=== PATIENT | female | born 1995 | race Two or more races ===

== ENCOUNTER 2021-11-02 07:27 | Emergency (ER) | payer MEDICAID, OTHER ==
[~2021-11-02] VITALS: Ht 160 cm; Wt 93.0 kg
[2021-11-02 09:05] VITALS: BP 109/73
[2021-11-02] MEDS ORDERED: KETOROLAC TROMETH 60MG/2ML VIAL IM ONE (09:30)
[2021-11-02] MEDS ORDERED: IBU600T PO (09:56)
== END 2021-11-02 10:00 | disposition home or self-care (01) ==
LOC: ER 07:27
DX: G43.909 Migraine, unspecified, not intractable, without status migrainosus (principal)
CPT/HCPCS: 96372; 99283; J1885

== ENCOUNTER 2024-03-24 03:01 | Emergency (ER) | payer MEDICAID ==
[~2024-03-24] VITALS: Ht 160 cm; Wt 100.4 kg
[~2024-03-24 03:01] MED LIST: IBU600T PO
[2024-03-24 07:21] LABS: Alanine Aminotransferase 11 U/L (7-40); Albumin 4.1 g/dL (3.2-4.8); Alkaline Phosphatase 54 U/L (46-116); Anion Gap 4 (5-15); Aspartate Aminotransferase 11 U/L (13-40); Calcium 9.3 mg/dL (8.5-10.1); Carbon Dioxide 25 mmol/L (20-30); Chloride 108 mmol/L (98-107); Glucose 92 mg/dL (74-106); Potassium 3.8 mmol/L (3.5-5.1); Sodium 137 mmol/L (136-145)
[2024-03-24 07:22] LABS: Bilirubin, Total 0.3 mg/dL (0.2-1.0); Total Protein 6.9 g/dL (5.7-8.2)
[2024-03-24 07:23] LABS: Basophils # (auto) 0.1 10 ^3/uL (0-0.2); Basophils % (auto) 0.4 % (0.0-2.0); Eosinophils # (auto) 0.1 10 ^3/uL (0-0.8); Eosinophils % (auto) 0.5 % (0.0-7.0); Hematocrit 35.7 % (36.0-46.0); Hemoglobin 11.9 g/dL (12.2-16.2); Lymphocytes # (auto) 2.5 10 ^3/uL (0.4-5.4); Lymphocytes % (auto) 18.5 % (10.0-50.0); Mean Corpuscular Hemoglobin 27.2 pg (28.0-32.0); Mean Corpuscular Hgb Conc. 33.2 g/dL (32.0-36.0); Mean Corpuscular Volume 81.8 fL (80.0-100.0); Monocytes # (auto) 1.1 10 ^3/uL (0-1.3); Monocytes % (auto) 8.2 % (0.0-12.0); Neutrophils # (auto) 9.9 10 ^3/uL (1.6-8.6); Neutrophils % (auto) 72.4 % (37.0-80.0); Nucleated Red Blood Cells % 0.1 %; Red Blood Cells 4.37 10^6/uL (4.0-5.20); Red Cell Distribution Width 15.7 % (11.8-14.3); White Blood Cell 13.7 10^3/uL (4.4-10.8)
[2024-03-24 07:30] LABS: BUN/Creatinine Ratio 10.4 (10.0-20.0); Blood Urea Nitrogen < 5 mg/dL (9-23)
[2024-03-24] MEDS ORDERED: CEPH250C PO (08:50)
[2024-03-24] MEDS: CEPHALEXIN 250 MG CAP PO ONE (09:28)
[2024-03-24 11:35] LABS: Urine Bacteria None Seen /hpf (None Seen)
[2024-03-24 11:50] LABS: Urine Blood Negative /uL (Negative); Urine Clarity Turbid (Clear); Urine Color Yellow (Yellow); Urine Mucus MODERATE (None Seen); Urine Protein, UAD 1+ (Negative); Urine Specific Gravity 1.033 (1.001-1.035); Urine Urobilinogen Normal (Negative); Urine WBC 8 /hpf (0 - 5)
[2024-03-24 13:39] VITALS: BP 100/73; PULSE 87; RESP 18; O2SAT 100
== END 2024-03-24 13:40 | disposition home or self-care (01) ==
LOC: ER 03:01
DX: O23.42 Unspecified infection of urinary tract in pregnancy, second trimester (principal); R10.2 Pelvic and perineal pain; S00.83XA Contusion of other part of head, initial encounter; N39.0 Urinary tract infection, site not specified; Z3A.17 17 weeks gestation of pregnancy; Y04.2XXA Assault by strike against or bumped into by another person, initial encounter; Y93.89 Activity, other specified; Y92.89 Other specified places as the place of occurrence of the external cause; Y99.8 Other external cause status
CPT/HCPCS: 36415; 76805; 80053; 81001; 84702; 85025

== ENCOUNTER 2024-06-11 09:18 | Observation (INO) | payer MEDICAID ==
[~2024-06-11] VITALS: Ht 160 cm; Wt 96.2 kg
[~2024-06-11 09:18] MED LIST changes: +CEPH250C PO
[2024-06-11 09:34] VITALS: BP 103/67; PULSE 91; RESP 18; O2SAT 96
[2024-06-11] MEDS: LACTATED RINGER'S 1,000 ML IV ONE (12:44)
[2024-06-11] MEDS: BETAMETHASONE ACET (30mg/5ml) 5ml Vial 6mg/ml IM ONE (12:44)
[2024-06-11] MEDS: TERBUTALINE SULFATE 1 MG/ML 1ML VIAL SC SCH (12:44)
[2024-06-11] MEDS ORDERED: PRENCAP11 PO (13:39)
[2024-06-11] MEDS ORDERED: NIFE10CA52 PO ×2 (13:39→13:40)
[2024-06-11 13:40] LABS: Vaginal Bacteria Few; Vaginal Clue Cells None Seen; Vaginal Epithelial Cells Few; Vaginal Trichomonas Not Present
[2024-06-11] MEDS: NIFEdipine 10 MG CAP PO ONE (14:11)
[2024-06-11 15:23] LABS: Urine Bacteria FEW /hpf (None Seen); Urine Blood Negative /uL (Negative); Urine Clarity Turbid (Clear); Urine Color Light-Orange (Yellow); Urine Mucus FEW (None Seen); Urine Protein, UAD 1+ (Negative); Urine Specific Gravity 1.024 (1.001-1.035); Urine Urobilinogen Normal (Negative); Urine WBC 9 /hpf (0 - 5)
== END 2024-06-11 15:19 | disposition home or self-care (01) ==
LOC: ER 09:18 → UNDOADMOB 09:42 → LDRP 09:42 → ER 09:42 → LDRP 09:56 → UNDODISOB 15:19
PROVIDERS: ADMIT Obstetrics & Gynecology; ATTEND Obstetrics & Gynecology
DX: O62.9 Abnormality of forces of labor, unspecified (principal); O26.893 Other specified pregnancy related conditions, third trimester; R10.9 Unspecified abdominal pain; Z3A.29 29 weeks gestation of pregnancy
CPT/HCPCS: 59025; 76815; 81001; 81002; 87210; 94760; 96360; 96361; 96372; 99284; G0378; J0702; J3105

== ENCOUNTER 2024-06-12 16:05 | Observation (INO) | payer MEDICAID ==
[~2024-06-12] VITALS: Ht 160 cm; Wt 102.1 kg
[~2024-06-12 16:05] MED LIST changes: -CEPH250C PO; -IBU600T PO; +NIFE10CA52 PO; +PRENCAP11 PO
[2024-06-12] MEDS: BETAMETHASONE ACET (30mg/5ml) 5ml Vial 6mg/ml IM ONE (16:57)
== END 2024-06-12 17:14 | disposition home or self-care (01) ==
LOC: UNDOADMOB 16:05 → LDRP 16:05 → UNDODISOB 17:14
PROVIDERS: ADMIT Obstetrics & Gynecology; ATTEND Obstetrics & Gynecology
DX: O36.0930 Maternal care for other rhesus isoimmunization, third trimester, not applicable or unspecified (principal); Z3A.29 29 weeks gestation of pregnancy; Z79.899 Other long term (current) drug therapy
CPT/HCPCS: 59025; 81002; 94760; G0378

== ENCOUNTER 2024-06-19 19:06 | Observation (INO) | payer MEDICAID | END 2024-06-19 20:22 | disposition home or self-care (01) | LOC: LDRP 19:06 | PROVIDERS: ADMIT Obstetrics & Gynecology; ATTEND Obstetrics & Gynecology | DX: O60.03 Preterm labor without delivery, third trimester (principal); Z3A.30 30 weeks gestation of pregnancy | CPT/HCPCS: 59025; 81002; 94760; G0378 ==

== ENCOUNTER 2024-06-26 18:56 | Observation (INO) | payer MEDICAID | END 2024-06-26 20:11 | disposition home or self-care (01) | LOC: LDRP 18:56 | PROVIDERS: ADMIT Obstetrics & Gynecology; ATTEND Obstetrics & Gynecology | DX: O60.03 Preterm labor without delivery, third trimester (principal); Z3A.31 31 weeks gestation of pregnancy | CPT/HCPCS: 59025; 81002; 94760; G0378 ==

== ENCOUNTER 2024-07-03 12:42 | Observation (INO) | payer MEDICAID ==
[~2024-07-03] VITALS: Ht 165.1 cm; Wt 81.6 kg
[2024-07-03] MEDS: LACTATED RINGER'S 1,000 ML IV ONE (15:05)
[2024-07-03] MEDS: TERBUTALINE SULFATE 1 MG/ML 1ML VIAL SC ONE (16:20)
[2024-07-03] MEDS ORDERED: NIFE10CA52 PO (16:46)
== END 2024-07-03 16:57 | disposition home or self-care (01) ==
LOC: UNDOADMOB 12:42 → LDRP 12:42
PROVIDERS: ADMIT Obstetrics & Gynecology; ATTEND Obstetrics & Gynecology
DX: O62.9 Abnormality of forces of labor, unspecified (principal); Z3A.32 32 weeks gestation of pregnancy
CPT/HCPCS: 59025; 76818; 81002; 94760; 96360; 96372; G0378; J3105

== ENCOUNTER 2024-07-10 19:03 | Observation (INO) | payer MEDICAID | END 2024-07-10 20:52 | disposition home or self-care (01) | LOC: LDRP 19:03 | PROVIDERS: ADMIT Obstetrics & Gynecology; ATTEND Obstetrics & Gynecology | DX: O60.03 Preterm labor without delivery, third trimester (principal); Z3A.33 33 weeks gestation of pregnancy | CPT/HCPCS: 59025; 76818; 81002; 94760; G0378 ==

== ENCOUNTER 2024-07-11 09:11 | Observation (INO) | payer MEDICAID ==
[2024-07-11 10:35] VITALS: BP 107/63; PULSE 90; RESP 18
[2024-07-11] MEDS: NALBUPHINE HCL 10 MG/1ml INJECTION IV ONE (10:35)
[2024-07-11 10:59] LABS: Basophils # (auto) 0 10 ^3/uL (0-0.2); Basophils % (auto) 0.2 % (0.0-2.0); Eosinophils # (auto) 0.1 10 ^3/uL (0-0.8); Eosinophils % (auto) 0.5 % (0.0-7.0); Monocytes # (auto) 0.8 10 ^3/uL (0-1.3); White Blood Cell 11.1 10^3/uL (4.4-10.8)
[2024-07-11 11:02] LABS: Hematocrit 30.7 % (36.0-46.0); Lymphocytes # (auto) 1.4 10 ^3/uL (0.4-5.4); Mean Corpuscular Hemoglobin 26.4 pg (28.0-32.0); Mean Corpuscular Hgb Conc. 32.7 g/dL (32.0-36.0); Mean Corpuscular Volume 80.6 fL (80.0-100.0); Monocytes % (auto) 7.3 % (0.0-12.0); Neutrophils # (auto) 8.8 10 ^3/uL (1.6-8.6); Platelet Count (auto) 192 10^3/uL (140-450); Red Blood Cells 3.81 10^6/uL (4.0-5.20); Red Cell Distribution Width 15.1 % (11.8-14.3)
[2024-07-11 11:13] LABS: Alanine Aminotransferase 25 U/L (7-40); Albumin 3.6 g/dL (3.2-4.8); Alkaline Phosphatase 90 U/L (46-116); Amylase 21 U/L (30-118); Anion Gap 9 (5-15); Aspartate Aminotransferase 14 U/L (13-40); Bilirubin, Total 0.4 mg/dL (0.2-1.0); Carbon Dioxide 21 mmol/L (20-31); Chloride 108 mmol/L (98-107); Glucose 80 mg/dL (74-106); Potassium 3.7 mmol/L (3.5-5.1); Sodium 138 mmol/L (136-145); Total Protein 6.1 g/dL (5.7-8.2)
[2024-07-11 11:16] LABS: BUN/Creatinine Ratio 11.4 (10.0-20.0); Blood Urea Nitrogen < 5 mg/dL (9-23)
[2024-07-11 11:27] LABS: Uric Acid 3.7 mg/dL (3.1-7.8)
[2024-07-11 11:28] LABS: Lipase 28 U/L (12-53)
[2024-07-11 12:16] LABS: Urine Bacteria FEW /hpf (None Seen); Urine Blood Negative /uL (Negative); Urine Clarity Turbid (Clear); Urine Color Yellow (Yellow); Urine Mucus FEW (None Seen); Urine Protein, UAD Negative (Negative); Urine Specific Gravity 1.016 (1.001-1.035); Urine Urobilinogen 2 mg/dL (Negative); Urine WBC 14 /hpf (0 - 5)
[2024-07-11] MEDS: LACTATED RINGER'S 1,000 ML IV ONE (12:19)
[2024-07-11] MEDS: LACTATED RINGER'S 1,000 ML IV SCH (12:21)
== END 2024-07-11 17:38 ==
LOC: LDRP 09:11 → UNDOADMOB 09:11 → LDRP 09:34 → UNDOADMOB 14:02 → UNDODISOB 17:38
PROVIDERS: ADMIT Obstetrics & Gynecology; ATTEND Obstetrics & Gynecology
DX: O99.613 Diseases of the digestive system complicating pregnancy, third trimester (principal); K80.10 Calculus of gallbladder with chronic cholecystitis without obstruction; O21.2 Late vomiting of pregnancy; Z3A.33 33 weeks gestation of pregnancy
CPT/HCPCS: 36415; 59025; 76705; 76805; 80053; 81001; 81002; 82150; 83690; 84550; 85025; 94760; 96361; 96374; G0378; J2300; 96360

== ENCOUNTER 2024-07-17 15:14 | Observation (INO) | payer MEDICAID ==
[~2024-07-17] VITALS: Ht 160 cm; Wt 95.7 kg
== END 2024-07-17 22:06 | disposition home or self-care (01) ==
LOC: LDRP 20:47
PROVIDERS: ADMIT Obstetrics & Gynecology; ATTEND Obstetrics & Gynecology
DX: O60.03 Preterm labor without delivery, third trimester (principal); O99.613 Diseases of the digestive system complicating pregnancy, third trimester; K80.20 Calculus of gallbladder without cholecystitis without obstruction; Z3A.34 34 weeks gestation of pregnancy
CPT/HCPCS: 59025; 76818; 81002; 94760; G0378

== ENCOUNTER 2024-07-26 21:04 | Observation (INO) | payer MEDICAID ==
[2024-07-26] MEDS ORDERED: ZOFR4T PO (22:05)
== END 2024-07-26 22:41 | disposition home or self-care (01) ==
LOC: LDRP 21:04
PROVIDERS: ADMIT Obstetrics & Gynecology; ATTEND Obstetrics & Gynecology
DX: O60.03 Preterm labor without delivery, third trimester (principal); Z3A.34 34 weeks gestation of pregnancy
CPT/HCPCS: 59025; 76817; 76818; 81002; G0378

== ENCOUNTER 2024-08-02 10:47 | Observation (INO) | payer MEDICAID ==
[~2024-08-02 10:47] MED LIST changes: +ZOFR4T PO
[2024-08-02 12:40] LABS: Fern Testing Negative
== END 2024-08-02 13:00 | disposition home or self-care (01) ==
LOC: LDRP 10:47 → UNDOADMOB 10:47 → LDRP 10:51 → UNDODISOB 13:00
PROVIDERS: ADMIT Obstetrics & Gynecology; ATTEND Obstetrics & Gynecology
DX: O62.9 Abnormality of forces of labor, unspecified (principal); O26.893 Other specified pregnancy related conditions, third trimester; R10.9 Unspecified abdominal pain; Z3A.36 36 weeks gestation of pregnancy
CPT/HCPCS: 59025; 76818; 81002; 84112; 94760; G0378; Q0114

== ENCOUNTER 2024-08-12 09:40 | Observation (INO) | payer MEDICAID ==
[~2024-08-12] VITALS: Ht 160 cm; Wt 94.8 kg
[2024-08-12 10:59] LABS: Basophils # (auto) 0 10 ^3/uL (0-0.2); Eosinophils # (auto) 0.1 10 ^3/uL (0-0.8); Hemoglobin 10.4 g/dL (12.2-16.2); Lymphocytes # (auto) 1.7 10 ^3/uL (0.4-5.4); Neutrophils # (auto) 5.3 10 ^3/uL (1.6-8.6); Red Cell Distribution Width 15.9 % (11.8-14.3)
[2024-08-12 11:01] LABS: Basophils % (auto) 0.2 % (0.0-2.0); Eosinophils % (auto) 0.9 % (0.0-7.0); Hematocrit 31.9 % (36.0-46.0); Lymphocytes % (auto) 22.5 % (10.0-50.0); Mean Corpuscular Hemoglobin 25.2 pg (28.0-32.0); Mean Corpuscular Hgb Conc. 32.6 g/dL (32.0-36.0); Mean Corpuscular Volume 77.2 fL (80.0-100.0); Monocytes # (auto) 0.6 10 ^3/uL (0-1.3); Monocytes % (auto) 7.8 % (0.0-12.0); Neutrophils % (auto) 68.6 % (37.0-80.0); Platelet Count (auto) 181 10^3/uL (140-450); Red Blood Cells 4.13 10^6/uL (4.0-5.20); White Blood Cell 7.7 10^3/uL (4.4-10.8)
[2024-08-12 11:01] LABS: Urine Bacteria FEW /hpf (None Seen); Urine Blood TRACE /uL (Negative); Urine Clarity Turbid (Clear); Urine Color Yellow (Yellow); Urine Mucus FEW (None Seen); Urine Protein, UAD 1+ (Negative); Urine Urobilinogen 4 mg/dL (Negative); Urine WBC 5 /hpf (0 - 5); Urine pH 6.5 (5.0-9.0)
[2024-08-12 11:04] LABS: Protein, Urine 31.4 mg/dL (1-14)
[2024-08-12 11:07] LABS: Creatinine, Urine 222.21 mg/dL (30.0-125.0); Urine Protein/Creatinine Ratio 0.14
[2024-08-12 11:10] LABS: INR 1.01 (0.9-1.15); Partial Thromboplastin Time 26.2 SEC (24.5-34.5); Prothrombin Time 10.7 sec (9.3-11.8)
[2024-08-12 11:13] LABS: Alanine Aminotransferase 27 U/L (7-40); Albumin 3.9 g/dL (3.2-4.8); Alkaline Phosphatase 124 U/L (46-116); Anion Gap 7 (5-15); Aspartate Aminotransferase 15 U/L (13-40); Calcium 9.2 mg/dL (8.7-10.4); Carbon Dioxide 20 mmol/L (20-31); Chloride 110 mmol/L (98-107); Glucose 80 mg/dL (74-106); Potassium 3.8 mmol/L (3.5-5.1); Sodium 137 mmol/L (136-145); Uric Acid 4.2 mg/dL (3.1-7.8)
[2024-08-12 11:14] LABS: Bilirubin, Total 0.5 mg/dL (0.2-1.0); Total Protein 6.5 g/dL (5.7-8.2)
[2024-08-12 11:24] LABS: BUN/Creatinine Ratio 11.1 (10.0-20.0); Blood Urea Nitrogen < 5 mg/dL (9-23)
== END 2024-08-12 14:00 | disposition home or self-care (01) ==
LOC: UNDOADMOB 09:40 → LDRP 09:40 → UNDODISOB 14:00
PROVIDERS: ADMIT Obstetrics & Gynecology; ATTEND Obstetrics & Gynecology
DX: O47.9 False labor, unspecified (principal); O13.3 Gestational [pregnancy-induced] hypertension without significant proteinuria, third trimester; Z3A.38 38 weeks gestation of pregnancy; Z79.899 Other long term (current) drug therapy; Z98.890 Other specified postprocedural states
CPT/HCPCS: 36415; 59025; 76818; 80053; 81001; 81002; 82570; 84156; 84550; 85025; 85610; 85730; 94760; G0378

== ENCOUNTER 2024-08-14 15:11 | Inpatient (IN) | payer MEDICAID ==
[~2024-08-14] VITALS: Ht 160 cm; Wt 94.8 kg
[2024-08-14] MEDS ORDERED: NALBUPHINE HCL 10 MG/1ml INJECTION IV PRN (18:45)
[2024-08-14] MEDS ORDERED: LIDOCAINE 2%HCL (LOCAL ANESTH.) INJ 20ML MDV IJ PRN (18:45)
--- NOTE | 2024-08-14 19:12 | DVHHP2 ---
OB CC & HPI Date Date of Admission: Aug 14, 2024 Patient Identification: : 4 Para: 3 EDC: Aug 25, 2024 EGA: 38w3d Chief Complaints: Reason for admission: other (Labor and pt requesting epidural) History of Present Complaints 28yo SIUP@38.3wks presents in labor. Pt reports UCs Q5-6 min that started 1 , but intensified at 0700 this morning. Wants an epidural. Denies LOF/VB/CEDENO/vision changes/RUQ pain. Endorses +FM. PNC: Routine PNC at [facility] OB office. PNC complicated by labor. Pt received weekly NSTs starting at 29 weeks. OB hx: x3, Uncomplicated Past Medical History Cardiac: No pertinent Hx Pulmonary: No pertinent Hx Central Nervous System: No pertinent Hx GI: No pertinent Hx Hemotology/Oncology: No pertinent Hx Hepatobiliary: No pertinent Hx Psychiatric: No pertinent Hx Musculoskeletal: No pertinent Hx Rheumotologic: No pertinent Hx Infectious Disease: No peritnent Hx ENT: No pertinent Hx Renal/: No pertinent Hx Endocrine: No pertinent Hx Dermatology: No pertinent Hx Past Surgical History: Tonsillectomy, Other (LEEP 2019) OB History OB History Care: Good Care Ultrasounds: Normal mid trimester US Obstetrical Complications: Other (PTL) Medical Complications: None Allergies: Coded Allergies: No Known Drug Allergy (Verified Allergy, Unknown, 11/02/21) Allergies NKDA Home Meds Active Scripts Vit W/ Fe Fum-Iron Po (Concept Dha) Cap, 1 CAP PO DAILY, #90 CAP 3 Refills Prov:SIRISHA ADAM CNLula 06/11/24 Reported Medications Ondansetron Odt 4MG Tab (ZOFRAN PO) 4 Mg Tb, 10 MG PO BIDP PRN for NAUSEA / VOMITING, TAB ODT TAB-DISSOLVE IN MOUTH, THEN SWALLOW 07/26/24 Nifedipine (PROCARDIA CAPSULE) 10 Mg Cp, 10 MG PO Q4HR, CAP 07/03/24 Current Medications Current Medications Medications (Trade) Dose Ordered Sig/Antoine Route PRN Reason Start Time Stop Time Status Last Admin Lactated Ringer's 1,000 ml @ 125 mls/hr Q8H IV 08/14/24 18:45 Nalbuphine HCl (Nubain) 10 mg Q4HP PRN IV MODERATE PAIN (4-6 PAIN SCALE) 08/14/24 18:45 Penicillin G Potassium [id number] units/Dextrose 50 ml @ 100 mls/hr Q4H IV 08/14/24 22:45 Witch Romina (Tucks) 1 pad PRN PRN TOP PERINEAL AREA DISCOMFORT 08/14/24 18:45 Sodium Lauryl Sulfate (Phisoderm) 240 ml PRN PRN TOP PERINEAL AREA DISCOMFORT 08/14/24 18:45 Benzocaine (Dermoplast) 1 applic PRN PRN TOP PERINEAL AREA DISCOMFORT 08/14/24 18:45 Lidocaine HCl (Xylocaine) 20 ml ONCE PRN IJ PERINEAL AREA DISCOMFORT 08/14/24 18:45 Family & Social History Family/Social History Past Family/Social History: none Blood Type: A+ Rubella: immune RPR/VDRL: Negative GBS Status: Negative HBsAG: Negative Review of Systems Constitutional: No symptom reported Ears, Nose, & Throat: No symptom reported Eyes: No symptom reported Pulmonary/Respiratory: No symptom reported Cardiovascular: No symptom reported Gastrointestinal: No symptom reported Genitourinary: No symptom reported Musculoskeletal: No symptom reported Skin: No symptom reported Psychiatric: No symptom reported Endocrine: No symptom reported Hemotologic/Lymphatic: No symptom reported OB Admission Exam Physical Exam Vitals: VSS; See chart HEENT: TMs Normal, Fontanelles Normal, Nasal Mucosa Normal, Eyes non-injected, Oropharynx Normal, PERRLA, Moist Membranes, EOMI Heart: Rhythm Normal Lungs: Clear Abdomen: Gravid Extremities: Normal Reflexes: Normal Pelvic Exam: SVE 3/80/-2 by RN Membranes: Intact Heart Rate: 130's Accelerations: Accelerations Present Decelerations: No Decelerations Disaster Recovery Consultant Variability: Average (6-25) Contractions on Admission: 6-10 Minutes Apart Date/Time Contractions Began: 0700 08/14/24 Duration: 60 sec Intensity: Moderate OB Plan Plan Admitting Diagnosis: LABOR Plan: Expectant Management Other Plan: A: 28yo IUP@38.3wks Labor Category I EFM Intact Membranes GBS negative (per pt) P: Admit to L&D Informed consent obtained Expectant management monitoring per order Routine labs ordered Pain mgmt PRN Frequent position changes in and out of bed encouraged Intrauterine resuscitation PRN Anticipate CNM will consult SINCERE Kitchen [facility] Aug 14, 2024 19:12
[2024-08-14 19:27] LABS: Basophils # (auto) 0 10 ^3/uL (0-0.2); Basophils % (auto) 0.3 % (0.0-2.0); Hemoglobin 10.4 g/dL (12.2-16.2); Monocytes % (auto) 8.7 % (0.0-12.0)
[2024-08-14 19:28] LABS: Eosinophils # (auto) 0.1 10 ^3/uL (0-0.8); Eosinophils % (auto) 0.7 % (0.0-7.0); Hematocrit 32.5 % (36.0-46.0); Lymphocytes % (auto) 20.7 % (10.0-50.0); Mean Corpuscular Hgb Conc. 31.9 g/dL (32.0-36.0); Mean Corpuscular Volume 78.4 fL (80.0-100.0); Monocytes # (auto) 0.9 10 ^3/uL (0-1.3); Neutrophils # (auto) 6.9 10 ^3/uL (1.6-8.6); Neutrophils % (auto) 69.6 % (37.0-80.0); Nucleated Red Blood Cells % 0.2 %; Platelet Count (auto) 181 10^3/uL (140-450); Red Blood Cells 4.14 10^6/uL (4.0-5.20); Red Cell Distribution Width 15.9 % (11.8-14.3); White Blood Cell 9.9 10^3/uL (4.4-10.8)
[2024-08-14] MEDS ORDERED: LIDOCAINE HCL 2 %PF INJ 10ML AMP IJ ONE (19:45)
[2024-08-14] MEDS ORDERED: NALOXONE HCL 0.4 MG/ML VIAL IV ONE (19:45)
[2024-08-14 19:54] LABS: Alanine Aminotransferase 27 U/L (7-40); Albumin 3.8 g/dL (3.2-4.8); Alkaline Phosphatase 129 U/L (46-116); Anion Gap 10 (5-15); Aspartate Aminotransferase 16 U/L (13-40); BUN/Creatinine Ratio 12.8 (10.0-20.0); Blood Urea Nitrogen 6 mg/dL (9-23); Calcium 9.1 mg/dL (8.7-10.4); Carbon Dioxide 19 mmol/L (20-31); Chloride 106 mmol/L (98-107); Glucose 93 mg/dL (74-106); Potassium 3.8 mmol/L (3.5-5.1); Sodium 135 mmol/L (136-145)
[2024-08-14 19:55] LABS: Bilirubin, Total 0.4 mg/dL (0.2-1.0); Total Protein 6.4 g/dL (5.7-8.2)
[2024-08-14 19:57] LABS: INR 1.02 (0.9-1.15); Partial Thromboplastin Time 25.9 SEC (24.5-34.5); Prothrombin Time 10.8 sec (9.3-11.8)
[2024-08-14] MEDS: LACTATED RINGER'S 1,000 ML IV SCH (20:04)
[2024-08-14] MEDS: LACTATED RINGER'S 1,000 ML IV ONE (20:04)
[2024-08-14 20:07] LABS: Amphetamine Screen, Urine Neg (NEGATIVE); Benzodiazephine Screen, Urine Neg (NEGATIVE)
[2024-08-14 20:08] LABS: Barbiturate Scree,Urine Neg (NEGATIVE); Cannabinoid Screen, Urine Neg (NEGATIVE); Cocaine Screen, Urine Neg (NEGATIVE); Opiate Scree,Urine Neg (NEGATIVE); Phencyclidine Screen, Urine Neg (NEGATIVE)
[2024-08-14 20:09] LABS: Urine Amorphous Crystal FEW /hpf (None Seen); Urine Bacteria MOD /hpf (None Seen); Urine Blood Negative /uL (Negative); Urine Clarity Clear (Clear); Urine Color Light-Yellow (Yellow); Urine Hyaline Cast FEW /lpf (0 - 2); Urine Mucus FEW (None Seen); Urine Protein, UAD Negative (Negative); Urine Specific Gravity 1.017 (1.001-1.035); Urine Urobilinogen Normal (Negative); Urine WBC 10 /hpf (0 - 5)
[2024-08-14] MEDS: fentaNYL CITRATE 100 MCG/2 ML VL IV ONE (20:52)
[2024-08-14] MEDS: ROPIVACAINE HCL 200 ML ONE (20:54)
[2024-08-14] MEDS: WITCH HAZEL-GLYCERIN PAD TOP PRN (21:00)
[2024-08-14] MEDS: PHISODERM TOP SOLN 240ML BTL TOP PRN (21:00)
[2024-08-14] MEDS: DERMOPLAST 60ML BOTTLE TOP PRN (21:01)
--- NOTE | 2024-08-14 21:15 | EPIDURAL ---
Anesthesia Procedural Note - Epidural Date: Aug 14, 2024 Informed consent obtained?: Yes Medication Administered: Fentanyl 100 mcg Medication Administered: ePHEDrine 5 mg IV Sterile prept drape: Yes Spinal level of insertion: L3-L4 Test dose of lidocaine & Epine: Negative Infusion started: Yes Start time: 20:10 End time: 21:15 HAROON CUTLER MD Aug 14, 2024 21:15
[2024-08-14] MEDS ORDERED: PENICILLIN G POTASSIUM 2,500,000 UNITS in D5W 5% 50 ML IV SCH (22:45)
[2024-08-14] MEDS: ePHEDrine SULFATE 50 MG/ML AMP IV ONE (22:51)
[2024-08-15] MEDS: FAMOTIDINE (10MG/ML) 2ML VL IV SCH (02:39)
--- NOTE | 2024-08-15 02:49 | DVHPN2 ---
CNM Labor Progress Note Date and Time Seen Date Seen: Aug 15, 2024 Time Seen: 02:11 Subjective Patient reports: No new complaints Subjective Comment Pt denies pain after epidural just on/off pelvic pressure. Objective Vital Signs VSS, see chart Monitoring Method Monitoring Method: External Heart Rate Heart Rate Baseline: 130 Heart Rate Variability: Moderate Presence of FHR Accelerations: Yes Presence of FHR Decelerations: No Are all 5 Components of the FH: Yes Contractions Contractions Frequency: Other (q2-6min) Duration of Contraction: 70 Membranes Membranes: Intact Vaginal Exam Vag Exam Deferred: No (Membrane sweep done with pt consent) Vaginal Exam Dilation: 4 Vaginal Exam Effacement: 80 Vaginal Exam Station: -1 Vaginal Exam Presentation: VTX Vaginal Exam Show: Small Medications Medications - Pitocin: No Medication - Epidural: Yes Lab Results Lab Results Vital Signs Date Time Temp Pulse Resp B/P (MAP) Pulse Ox O2 Delivery O2 Flow Rate FiO2 08/14/24 20:52 111/59 Current Medications Medications (Trade) Dose Ordered Sig/Antoine Start Time Stop Time Status Last Admin Dose Admin Lactated Ringer's 1,000 ml @ 125 mls/hr Q8H 08/14/24 18:45 08/14/24 20:04 125 MLS/HR Nalbuphine HCl (Nubain) 10 mg Q4HP PRN 08/14/24 18:45 Penicillin G Potassium 50 ml @ 100 mls/hr ONCE ONCE 08/14/24 18:45 08/14/24 19:14 DC Penicillin G Potassium [id number] units/Dextrose 50 ml @ 100 mls/hr Q4H 08/14/24 22:45 Radha Vanegas (Tucks) 1 pad PRN PRN 08/14/24 18:45 08/14/24 21:00 1 PAD Sodium Lauryl Sulfate (Phisoderm) 240 ml PRN PRN 08/14/24 18:45 08/14/24 21:00 240 ML Benzocaine (Dermoplast) 1 applic PRN PRN 08/14/24 18:45 08/14/24 21:01 1 APPLIC Lidocaine HCl (Xylocaine) 20 ml ONCE PRN 08/14/24 18:45 Lactated Ringer's 1,000 ml @ 1,000 mls/hr Q1H ONCE 08/14/24 18:45 08/14/24 19:44 DC Naloxone HCl (Narcan) 0.2 mg PRN ONCE 08/14/24 19:45 08/14/24 19:57 DC Ephedrine Sulfate (ePHEDrine SULFATE) 50 mg PRN ONCE 08/14/24 19:45 08/14/24 19:57 DC 08/14/24 22:51 50 MG Fentanyl Citrate 100 mcg ONCE ONCE 08/14/24 19:45 08/14/24 19:57 DC 08/14/24 20:52 100 MCG Lidocaine HCl (Xylocaine-Pf 2% Injection) 0.2 ml ONCE ONCE 08/14/24 19:45 08/14/24 19:57 DC Lactated Ringer's 1,000 ml @ 1,000 mls/hr Q1H ONCE 08/14/24 19:45 08/14/24 20:44 DC 08/14/24 20:04 1,000 MLS/HR Oxytocin 500 ml @ 999 mls/hr Q31M ONCE 08/14/24 19:45 08/14/24 20:15 DC Oxytocin 500 ml @ 125 mls/hr Q4H ONCE 08/14/24 20:15 08/15/24 00:14 DC Famotidine (Pepcid Injection) 20 mg Q12HR 08/15/24 02:30 Laboratory Tests Test 08/14/24 19:03 08/14/24 19:00 Range/Units White Blood Count 9.9 # 4.4-10.8 10^3/uL Red Blood Count 4.14 4.0-5.20 10^6/uL Hemoglobin 10.4 L 12.2-16.2 g/dL Hematocrit 32.5 L 36.0-46.0 % Mean Corpuscular Volume 78.4 L 80.0-100.0 fL Mean Corpuscular Hemoglobin 25.0 L 28.0-32.0 pg Mean Corpuscular Hemoglobin Concent 31.9 L 32.0-36.0 g/dL Red Cell Distribution Width 15.9 H 11.8-14.3 % Platelet Count 181 140-450 10^3/uL Mean Platelet Volume 10.4 6.9-10.8 fL Neutrophils (%) (Auto) 69.6 37.0-80.0 % Lymphocytes (%) (Auto) 20.7 10.0-50.0 % Monocytes (%) (Auto) 8.7 0.0-12.0 % Eosinophils (%) (Auto) 0.7 0.0-7.0 % Basophils (%) (Auto) 0.3 0.0-2.0 % Neutrophils # (Auto) 6.9 1.6-8.6 10 ^3/uL Lymphocytes # (Auto) 2.0 0.4-5.4 10 ^3/uL Monocytes # (Auto) 0.9 0-1.3 10 ^3/uL Eosinophils # (Auto) 0.1 0-0.8 10 ^3/uL Basophils # (Auto) 0 0-0.2 10 ^3/uL Nucleated Red Blood Cells 0.2 % Prothrombin Time 10.8 9.3-11.8 sec Prothrombin Time INR 1.02 0.9-1.15 Activated Partial Thromboplast Time 25.9 24.5-34.5 SEC Sodium Level 135 L 136-145 mmol/L Potassium Level 3.8 3.5-5.1 mmol/L Chloride Level 106 98-107 mmol/L Carbon Dioxide Level 19 L 20-31 mmol/L Anion Gap 10 5-15 Blood Urea Nitrogen 6 L 9-23 mg/dL Creatinine 0.47 L 0.550-1.02 mg/dL Glomerular Filtration Rate Calc 134 >90 mL/min BUN/Creatinine Ratio 12.8 10.0-20.0 Serum Glucose 93 74-106 mg/dL Calcium Level 9.1 8.7-10.4 mg/dL Total Bilirubin 0.4 0.2-1.0 mg/dL Aspartate Amino Transferase (AST) 16 13-40 U/L Alanine Aminotransferase (ALT) 27 7-40 U/L Alkaline Phosphatase 129 H 46-116 U/L Total Protein 6.4 5.7-8.2 g/dL Albumin 3.8 3.2-4.8 g/dL Rapid Plasma Reagin Pending Hepatitis C Antibody Negative Negative Urine Color Light-yellow Yellow Urine Clarity Clear Clear Urine pH 7.0 5.0-9.0 Urine Specific [place] 1.017 1.001-1.035 Urine Protein Negative Negative Urine Ketones Negative Negative Urine Blood Negative Negative /uL Urine Nitrite Negative Negative Urine Bilirubin Negative Negative Urine Urobilinogen Normal Negative mg/dL Urine Leukocyte Esterase 2+ Negative /uL Urine RBC 2 0 - 4 /hpf Urine WBC 10 0 - 5 /hpf Urine Squamous Epithelial Cells Few <5 /hpf Urine Amorphous Crystals Few None Seen /hpf Urine Bacteria Mod H None Seen /hpf Urine Hyaline Casts Few 0 - 2 /lpf Urine Mucus Few None Seen Urine Glucose Normal Normal mg/dL Urine Opiates Screen Neg NEGATIVE Urine Fentanyl Screen Neg NEGATIVE Urine Barbiturates Screen Neg NEGATIVE Urine Phencyclidine Screen Neg NEGATIVE Urine Amphetamines Screen Neg NEGATIVE Urine Benzodiazepines Screen Neg NEGATIVE Urine Cocaine Screen Neg NEGATIVE Urine Cannabinoids Screen Neg NEGATIVE Assessment Assessment A: 28yo IUP@38.4wks Labor Category I EFM Intact Membranes GBS negative (per pt) Plan Plan P: Membrane sweep done to augment labor monitoring per order Epidural in place for pain mgmt Frequent position changes in bed with peanut ball encouraged Intrauterine resuscitation PRN Anticipate CNM will consult Dr. Huber PRN Plan discussed with: Patient SIRISHA ADAM CNM Aug 15, 2024 02:49
[2024-08-15] MEDS ORDERED: TERBUTALINE SULFATE 1 MG/ML 1ML VIAL SC PRN (05:00)
[2024-08-15] MEDS: LACT. RINGERS/OXYTOCIN 20UNITS 1,000 ML IV SCH (05:05)
[2024-08-15] MEDS: ONDANSETRON HCL 4 MG/2 ML VIAL IV PRN (05:35)
--- NOTE | 2024-08-15 06:58 | DVHPN2 ---
Chief Complaints Patient reports: No new complaints Nursing reports: No new complaints Objective Vitals Vital Signs Date Time Temp Pulse Resp B/P (MAP) Pulse Ox O2 Delivery O2 Flow Rate FiO2 08/14/24 20:52 111/59 Medications Current Medications Medications (Trade) Dose Ordered Sig/Antoine Route PRN Reason Start Time Stop Time Status Last Admin Benzocaine (Dermoplast) 1 applic PRN PRN TOP PERINEAL AREA DISCOMFORT 08/14/24 18:45 08/14/24 21:01 Famotidine (Pepcid Injection) 20 mg Q12HR IV 08/15/24 02:30 08/15/24 02:39 Lactated Ringer's 1,000 ml @ 125 mls/hr Q8H IV 08/14/24 18:45 08/15/24 04:14 Lidocaine HCl (Xylocaine) 20 ml ONCE PRN IJ PERINEAL AREA DISCOMFORT 08/14/24 18:45 Nalbuphine HCl (Nubain) 10 mg Q4HP PRN IV MODERATE PAIN (4-6 PAIN SCALE) 08/14/24 18:45 Ondansetron HCl (Zofran) 4 mg Q6HPRN PRN IV NAUSEA / VOMITING 08/15/24 05:30 08/15/24 05:35 Oxytocin 1,000 ml @ 6 ml/hr Q24H IV 08/15/24 05:00 08/15/24 05:05 Penicillin G Potassium [id number] units/Dextrose 50 ml @ 100 mls/hr Q4H IV 08/14/24 22:45 Sodium Lauryl Sulfate (Phisoderm) 240 ml PRN PRN TOP PERINEAL AREA DISCOMFORT 08/14/24 18:45 08/14/24 21:00 Terbutaline Sulfate (Brethine Inj) 0.25 mg ONCE PRN SC Uterine tachysystole 08/15/24 05:00 Witch Romina (Tucks) 1 pad PRN PRN TOP PERINEAL AREA DISCOMFORT 08/14/24 18:45 08/14/24 21:00 Others VE-4CM/80/-1 Studies Laboratory Tests 08/14/24 19:03 Test 08/14/24 19:03 Range/Units Serum Glucose 93 74-106 mg/dL Ass/Plan Assessment LABOR Plan CONT WITH CORIN CULP DO Aug 15, 2024 06:58
--- NOTE | 2024-08-15 08:55 | DVHPN2 ---
OB Labor Progress Note Date and Time Seen Date Seen: Aug 15, 2024 Time Seen: 07:45 Subjective Patient reports: Feels better Subjective Comment s/p epidural Objective Vital Signs Afeb VS stable Heart Rate Heart Rate Baseline: 140 Heart Rate Variability: Moderate Presence of FHR Accelerations: Yes Presence of FHR Decelerations: Yes Heart Rate Type of Decel: Variable Decelerations Contractions Contractions Intensity: Moderate Contractions Resting Tone: Relaxed Membranes Membranes: Ruptured (AROM clear) Amniotic Fluid Color: Clear Vaginal Exam Vag Exam Deferred: No Vaginal Exam Dilation: 4 Vaginal Exam Effacement: 75 Vaginal Exam Station: -2 Vaginal Exam Presentation: VTX Vaginal Exam Show: None Lab Results Lab Results Vital Signs Date Time Temp Pulse Resp B/P (MAP) Pulse Ox O2 Delivery O2 Flow Rate FiO2 08/14/24 20:52 111/59 Current Medications Medications (Trade) Dose Ordered Sig/Antoine Start Time Stop Time Status Last Admin Dose Admin Lactated Ringer's 1,000 ml @ 125 mls/hr Q8H 08/14/24 18:45 08/15/24 04:14 125 MLS/HR Nalbuphine HCl (Nubain) 10 mg Q4HP PRN 08/14/24 18:45 Penicillin G Potassium 50 ml @ 100 mls/hr ONCE ONCE 08/14/24 18:45 08/14/24 19:14 DC Penicillin G Potassium [id number] units/Dextrose 50 ml @ 100 mls/hr Q4H 08/14/24 22:45 Witch Romina (Tucks) 1 pad PRN PRN 08/14/24 18:45 08/14/24 21:00 1 PAD Sodium Lauryl Sulfate (Phisoderm) 240 ml PRN PRN 08/14/24 18:45 08/14/24 21:00 240 ML Benzocaine (Dermoplast) 1 applic PRN PRN 08/14/24 18:45 08/14/24 21:01 1 APPLIC Lidocaine HCl (Xylocaine) 20 ml ONCE PRN 08/14/24 18:45 Lactated Ringer's 1,000 ml @ 1,000 mls/hr Q1H ONCE 08/14/24 18:45 08/14/24 19:44 DC Naloxone HCl (Narcan) 0.2 mg PRN ONCE 08/14/24 19:45 08/14/24 19:57 DC Ephedrine Sulfate (ePHEDrine SULFATE) 50 mg PRN ONCE 08/14/24 19:45 08/14/24 19:57 DC 08/14/24 22:51 50 MG Fentanyl Citrate 100 mcg ONCE ONCE 08/14/24 19:45 08/14/24 19:57 DC 08/14/24 20:52 100 MCG Lidocaine HCl (Xylocaine-Pf 2% Injection) 0.2 ml ONCE ONCE 08/14/24 19:45 08/14/24 19:57 DC Lactated Ringer's 1,000 ml @ 1,000 mls/hr Q1H ONCE 08/14/24 19:45 08/14/24 20:44 DC 08/14/24 20:04 1,000 MLS/HR Oxytocin 500 ml @ 999 mls/hr Q31M ONCE 08/14/24 19:45 08/14/24 20:15 DC Oxytocin 500 ml @ 125 mls/hr Q4H ONCE 08/14/24 20:15 08/15/24 00:14 DC Famotidine (Pepcid Injection) 20 mg Q12HR 08/15/24 02:30 08/15/24 02:39 20 MG Oxytocin 1,000 ml @ 6 ml/hr Q24H 08/15/24 05:00 08/15/24 05:05 6 ML/HR Terbutaline Sulfate (Brethine Inj) 0.25 mg ONCE PRN 08/15/24 05:00 Ondansetron HCl (Zofran) 4 mg Q6HPRN PRN 08/15/24 05:30 08/15/24 05:35 4 MG Laboratory Tests Test 08/14/24 19:03 08/14/24 19:00 Range/Units White Blood Count 9.9 # 4.4-10.8 10^3/uL Red Blood Count 4.14 4.0-5.20 10^6/uL Hemoglobin 10.4 L 12.2-16.2 g/dL Hematocrit 32.5 L 36.0-46.0 % Mean Corpuscular Volume 78.4 L 80.0-100.0 fL Mean Corpuscular Hemoglobin 25.0 L 28.0-32.0 pg Mean Corpuscular Hemoglobin Concent 31.9 L 32.0-36.0 g/dL Red Cell Distribution Width 15.9 H 11.8-14.3 % Platelet Count 181 140-450 10^3/uL Mean Platelet Volume 10.4 6.9-10.8 fL Neutrophils (%) (Auto) 69.6 37.0-80.0 % Lymphocytes (%) (Auto) 20.7 10.0-50.0 % Monocytes (%) (Auto) 8.7 0.0-12.0 % Eosinophils (%) (Auto) 0.7 0.0-7.0 % Basophils (%) (Auto) 0.3 0.0-2.0 % Neutrophils # (Auto) 6.9 1.6-8.6 10 ^3/uL Lymphocytes # (Auto) 2.0 0.4-5.4 10 ^3/uL Monocytes # (Auto) 0.9 0-1.3 10 ^3/uL Eosinophils # (Auto) 0.1 0-0.8 10 ^3/uL Basophils # (Auto) 0 0-0.2 10 ^3/uL Nucleated Red Blood Cells 0.2 % Prothrombin Time 10.8 9.3-11.8 sec Prothrombin Time INR 1.02 0.9-1.15 Activated Partial Thromboplast Time 25.9 24.5-34.5 SEC Sodium Level 135 L 136-145 mmol/L Potassium Level 3.8 3.5-5.1 mmol/L Chloride Level 106 98-107 mmol/L Carbon Dioxide Level 19 L 20-31 mmol/L Anion Gap 10 5-15 Blood Urea Nitrogen 6 L 9-23 mg/dL Creatinine 0.47 L 0.550-1.02 mg/dL Glomerular Filtration Rate Calc 134 >90 mL/min BUN/Creatinine Ratio 12.8 10.0-20.0 Serum Glucose 93 74-106 mg/dL Calcium Level 9.1 8.7-10.4 mg/dL Total Bilirubin 0.4 0.2-1.0 mg/dL Aspartate Amino Transferase (AST) 16 13-40 U/L Alanine Aminotransferase (ALT) 27 7-40 U/L Alkaline Phosphatase 129 H 46-116 U/L Total Protein 6.4 5.7-8.2 g/dL Albumin 3.8 3.2-4.8 g/dL Rapid Plasma Reagin Pending Hepatitis C Antibody Negative Negative Urine Color Light-yellow Yellow Urine Clarity Clear Clear Urine pH 7.0 5.0-9.0 Urine Specific [place] 1.017 1.001-1.035 Urine Protein Negative Negative Urine Ketones Negative Negative Urine Blood Negative Negative /uL Urine Nitrite Negative Negative Urine Bilirubin Negative Negative Urine Urobilinogen Normal Negative mg/dL Urine Leukocyte Esterase 2+ Negative /uL Urine RBC 2 0 - 4 /hpf Urine WBC 10 0 - 5 /hpf Urine Squamous Epithelial Cells Few <5 /hpf Urine Amorphous Crystals Few None Seen /hpf Urine Bacteria Mod H None Seen /hpf Urine Hyaline Casts Few 0 - 2 /lpf Urine Mucus Few None Seen Urine Glucose Normal Normal mg/dL Urine Opiates Screen Neg NEGATIVE Urine Fentanyl Screen Neg NEGATIVE Urine Barbiturates Screen Neg NEGATIVE Urine Phencyclidine Screen Neg NEGATIVE Urine Amphetamines Screen Neg NEGATIVE Urine Benzodiazepines Screen Neg NEGATIVE Urine Cocaine Screen Neg NEGATIVE Urine Cannabinoids Screen Neg NEGATIVE Assessment Assessment Term IUP in labor s/p Amniotomy Plan Plan continue labor management Anticipated Plan discussed with: Patient DIMITRIOS HAMPTON DO Aug 15, 2024 08:55
[2024-08-15] MEDS: PENICILLIN G POT 5MIL/D5 50ML 50 ML IV ONE (09:29)
[2024-08-15] MEDS: METHYLERGONOVINE MALEATE 0.2 MG/ML AMP IM ONE ×2 (10:03→12:30)
[2024-08-15] MEDS ORDERED: ONDANSETRON ODT 4 MG TAB PO PRN (10:45)
[2024-08-15] MEDS: ACETAMINOPHEN 325 MG TAB PO PRN (12:29)
[2024-08-15] MEDS: LACT. RINGERS/OXYTOCIN 20UNITS 500 ML IV ONE ×2 (12:31)
[2024-08-15] MEDS: LACTATED RINGER'S 1,000 ML IV ONE (12:32)
--- NOTE | 2024-08-15 12:44 | LDN2 ---
Labor and Delivery Note Date 08/15/24 Age 28 4 Para 4 EDC 11-10 EGA 38wks Diagnosis labor,morbid obesity Vaginal Delivery: VTX Vacuum Assisted: No Placenta: Spontaneous Sex: Female Apgars 8-9 Nuchal Cord Transected: No Amniotic Fluid: Clear Anesthesia epidural Episiotomy: No Extension: No EBL 300ml Labs Blood Bank 08/14/24 19:03: Blood Type A POSITIVE Complications none Conditions stable Comments/Significant Med Ismael spec exam no cxal lac CORIN MCCONNELL DO Aug 15, 2024 12:44
[2024-08-15] MEDS: IBUPROFEN 800 MG TAB PO PRN (13:33)
[2024-08-15 15:30] VITALS: BP 96/50; PULSE 86; RESP 16; TEMP 98.1; O2SAT 96
[2024-08-15 19:00] VITALS: BP 99/56; PULSE 69; RESP 16; TEMP 97.9; O2SAT 98
[2024-08-15 22:53] VITALS: BP 98/58; PULSE 77; RESP 16; TEMP 98.6
[2024-08-16 03:00] VITALS: BP 97/56; PULSE 82; RESP 16; TEMP 98.7
[2024-08-16 07:00] VITALS: BP 89/60; PULSE 82; RESP 18; TEMP 97.7; O2SAT 96
[2024-08-16 07:06] LABS: RPR Non Reactive (Non Reactive)
--- NOTE | 2024-08-16 07:18 | DVHDS2 ---
Obstetrics Discharge Summary Obstetrics Discharge Summary Date of Admission: Aug 14, 2024 Date of Discharge: Aug 16, 2024 Reason For Admission: Onset of Labor Procedures: NST Intrapartum Procedures: Spontaneous vaginal deliv Procedures: None Operative Complicat: None Discharge Diagnosis: Term -Delivered Discharge Information: Activity (Other), Diet (Routine), Medications (None), Instructions (Routine), Discharge to (Home), Discarge date (08-16) CORIN MCCONNELL DO Aug 16, 2024 07:18
--- NOTE | 2024-08-16 07:19 | DVHPN2 ---
Chief Complaints Patient reports: No new complaints, Feels better Nursing reports: No new complaints Objective Vitals Vital Signs Date Time Temp Pulse Resp B/P (MAP) Pulse Ox O2 Delivery O2 Flow Rate FiO2 08/16/24 03:00 98.7 82 16 97/56 (70) 98.7 08/15/24 19:00 Room Air 08/15/24 19:00 98 Medications Current Medications Medications (Trade) Dose Ordered Sig/Antoine Route PRN Reason Start Time Stop Time Status Last Admin Acetaminophen (Tylenol Tablet) 650 mg Q4HP PRN PO MILD PAIN (1-3 PAIN SCALE) 08/15/24 10:45 08/15/24 22:57 Ibuprofen (Motrin Tablet) 800 mg Q6HR PRN PO MODERATE PAIN (4-6 PAIN SCALE) 08/15/24 13:15 08/16/24 03:22 Ondansetron HCl (Zofran Po) 4 mg Q4HPRN PRN PO NAUSEA / VOMITING 08/15/24 10:45 General: Normal Neck: Normal Lungs: Normal Cardiovascular: Normal Abdominal: Soft Musculoskeletal: Normal Studies Laboratory Tests 08/14/24 19:03 Test 08/14/24 19:03 Range/Units Serum Glucose 93 74-106 mg/dL Ass/Plan Assessment s/p Plan dc home fu in 2wks CORIN MCCONNELL DO Aug 16, 2024 07:19
[2024-08-16 11:00] VITALS: BP 99/65; PULSE 84; RESP 18; TEMP 98; O2SAT 98
[2024-08-16 15:03] VITALS: BP 104/58; PULSE 72; RESP 18; TEMP 97.8; O2SAT 98
== END 2024-08-16 16:40 | disposition home or self-care (01) | DRG 560 ==
LOC: UNDOADMOB 15:11 → LDRP 15:11 → OBSVTOIN 18:30
PROVIDERS: ADMIT Obstetrics & Gynecology; ATTEND Obstetrics & Gynecology
PROC: 10E0XZZ Delivery of Products of Conception, External Approach (ICD-10-PCS; principal; 2024-08-15)
PROC: 3E0R3BZ Introduction of Anesthetic Agent into Spinal Canal, Percutaneous Approach (ICD-10-PCS; 2024-08-15)
PROC: 00HU33Z Insertion of Infusion Device into Spinal Canal, Percutaneous Approach (ICD-10-PCS; 2024-08-15)
DX: O99.214 Obesity complicating childbirth (principal); Z37.0 Single live birth; E66.01 Morbid (severe) obesity due to excess calories; Z3A.38 38 weeks gestation of pregnancy
CPT/HCPCS: 36415; 59025; 59409; 62282; 80053; 80307; 81001; 81002; 85025; 85610; 85730; 86592; 86803; 86850; 86900; 86901; 94760; 94762; 96360; 96361; 96365; 96366; 96374; 96375; G0378; J2405; J2540; J2590; J3490; J7060

== ENCOUNTER 2024-09-27 08:54 | Day surgery (SDC) | payer MEDICAID ==
[2024-09-20 11:18] LABS: Urine Bacteria None Seen /hpf (None Seen)
[2024-09-20 11:53] LABS: Urine Blood Negative /uL (Negative); Urine Clarity Clear (Clear); Urine Color Light-Yellow (Yellow); Urine Protein, UAD Negative (Negative); Urine Specific Gravity 1.012 (1.001-1.035); Urine Urobilinogen Normal (Negative); Urine WBC 9 /hpf (0 - 5); Urine pH 6.5 (5.0-9.0)
[2024-09-20 11:54] LABS: Basophils # (auto) 0 10 ^3/uL (0-0.2); Eosinophils # (auto) 0.1 10 ^3/uL (0-0.8); Eosinophils % (auto) 1.4 % (0.0-7.0); Hematocrit 37.9 % (36.0-46.0); Hemoglobin 11.9 g/dL (12.2-16.2); Lymphocytes # (auto) 2.1 10 ^3/uL (0.4-5.4); Neutrophils # (auto) 5.2 10 ^3/uL (1.6-8.6)
[2024-09-20 11:56] LABS: Basophils % (auto) 0.5 % (0.0-2.0); Lymphocytes % (auto) 26.4 % (10.0-50.0); Mean Corpuscular Hemoglobin 24.5 pg (28.0-32.0); Mean Corpuscular Hgb Conc. 31.4 g/dL (32.0-36.0); Mean Corpuscular Volume 78.1 fL (80.0-100.0); Monocytes # (auto) 0.6 10 ^3/uL (0-1.3); Neutrophils % (auto) 64.7 % (37.0-80.0); Platelet Count (auto) 260 10^3/uL (140-450); Red Blood Cells 4.85 10^6/uL (4.0-5.20); Red Cell Distribution Width 18.3 % (11.8-14.3)
[2024-09-20 12:04] LABS: INR 1.04 (0.9-1.15); Partial Thromboplastin Time 27.9 SEC (24.5-34.5)
[2024-09-20 12:21] LABS: Alanine Aminotransferase 18 U/L (7-40); Albumin 4.4 g/dL (3.2-4.8); Alkaline Phosphatase 79 U/L (46-116); Anion Gap 7 (5-15); BUN/Creatinine Ratio 8.8 (10.0-20.0); Calcium 9.8 mg/dL (8.7-10.4); Carbon Dioxide 26 mmol/L (20-31); Chloride 107 mmol/L (98-107); Glucose 93 mg/dL (74-106); Potassium 4.2 mmol/L (3.5-5.1); Sodium 140 mmol/L (136-145)
[2024-09-20 12:22] LABS: Bilirubin, Total 0.5 mg/dL (0.2-1.0); Total Protein 7.2 g/dL (5.7-8.2)
[2024-09-20 12:26] LABS: Aspartate Aminotransferase 9 U/L (13-40); Blood Urea Nitrogen 5 mg/dL (9-23)
--- NOTE | 2024-09-25 02:49 | DVHHP ---
ADMIT DATE: 09/27/2024 PREOPERATIVE HISTORY AND PHYSICAL CHIEF COMPLAINT: Desire for voluntary female sterilization. HISTORY OF PRESENT ILLNESS: This is a 28-year-old female. She is 4, para 4, last menstrual period was 11/2023. She is from a vaginal delivery on 08/15/2024. The patient has not resumed coital activity since her last delivery. The patient is currently . The patient is requesting voluntary female sterilization. She declines alternative methods of contraception. PAST MEDICAL HISTORY: Gallstones. PAST SURGICAL HISTORY: Denies. MEDICATIONS: vitamins. ALLERGIES: No known drug allergies. SOCIAL HISTORY: The patient is . Denies any tobacco, alcohol or illicit drug use. FAMILY HISTORY: Negative and noncontributory. REVIEW OF SYSTEMS: A 14-point review of systems is negative as otherwise stated in the history of present illness. PHYSICAL EXAMINATION: VITAL SIGNS: The patient is 202.6 pounds, she is 5 feet 3 inches tall, blood pressure 114/85. GENERAL: She is alert, pleasant, no acute distress. HEENT: Normocephalic, atraumatic. Extraocular muscles intact. NECK: Supple, without any palpable thyromegaly. CHEST: Normal S1, S2 heart sounds. No murmurs or gallops. LUNGS: Clear to auscultation bilaterally. ABDOMEN: Obese, soft, nontender. EXTREMITIES: Without cyanosis or edema. PELVIC: Normal external female genitalia. Internal exam is within normal limits. ASSESSMENT: Multiparity, requesting voluntary female sterilization. PLAN: The patient will be admitted for outpatient surgery. She will undergo operative laparoscopy with bilateral salpingectomy (sterilization procedure), possible laparotomy. The risks, benefits and alternatives to surgery have been discussed with the patient and informed consent has been obtained. Risks of pain, scar, bleeding, infection, injury to bowel, bladder, adjacent organs have been discussed. Possible risk of blood transfusion. The patient understands that she will be permanently sterile and infertile. There is 1% failure rate. Understands procedure is permanent and not reversible. Inocencio Clark, CG/SAY TID: [id number] RECEIPT: [id number] [facility]
[~2024-09-27] VITALS: Ht 160 cm; Wt 90.7 kg
[~2024-09-27 08:54] MED LIST changes: -NIFE10CA52 PO; -ZOFR4T PO
[2024-09-27] MEDS ORDERED: SUCCINYLCHOLINE CHLORIDE 20 MG/ML 10ML VIAL IV ONE (08:55)
[2024-09-27] MEDS ORDERED: ceFAZolin 2 GM/D5W100ml 100 ML IV ONE (09:15)
[2024-09-27] MEDS ORDERED: LIDOCAINE W/ EPINEPHRINE 1% 20ML VIAL ONE (09:22)
[2024-09-27] MEDS ORDERED: HYDR1TAB97 PO (09:23)
[2024-09-27] MEDS ORDERED: MORPHINE SULFATE INJ 2 MG/ml SYRG IV PRN (09:30)
[2024-09-27] MEDS ORDERED: KETOROLAC TROMETH 30 MG/ML 1ML VIAL IV ONE (09:30)
[2024-09-27] MEDS ORDERED: HYDROmorphone HCL 2 MG/ML VL/or syr IV PRN ×2 (09:30)
[2024-09-27] MEDS ORDERED: fentaNYL CITRATE 100 MCG/2 ML VL IV PRN (09:30)
[2024-09-27] MEDS ORDERED: LIDOCAINE 2% TOPICAL JELLY 5 ML URJT TOP ONE (09:33)
[2024-09-27] MEDS ORDERED: GLYCOPYRROLATE 0.2 MG/ML 1ML VIAL ONE (09:33)
[2024-09-27] MEDS ORDERED: fentaNYL CITRATE 100 MCG/2 ML VL ONE (09:33)
[2024-09-27] MEDS ORDERED: PROPOFOL 10 MG/ML 20 ML IV ONE (09:33)
[2024-09-27] MEDS ORDERED: LIDOCAINE 1% INJ PF 5ML AMP ONE (09:33)
[2024-09-27] MEDS ORDERED: ROCURONIUM 10MG/ML 10ML VIAL IV ONE (09:33)
[2024-09-27] MEDS ORDERED: DexAMETHasone SOD PHOS 10MG/1ML VIAL INJ ONE (09:33)
[2024-09-27] MEDS ORDERED: SODIUM CHLORIDE LOCK 10 ML ONE (09:33)
[2024-09-27] MEDS ORDERED: MEPERIDINE HCL (50 MG/ML) 1 ML VIAL ONE (09:33)
[2024-09-27] MEDS ORDERED: NEOSTIGMINE 1 MG/ML INJ (10mg/10ML VIAL) ONE (09:33)
[2024-09-27] MEDS ORDERED: ONDANSETRON HCL 4 MG/2 ML VIAL ONE (09:33)
[2024-09-27] MEDS ORDERED: MIDAZOLAM HCL 2MG/2ML 2ml VIAL (1mg/ml) ONE (09:33)
--- NOTE | 2024-09-27 11:29 | DVHOP ---
DATE OF SURGERY: 09/27/2024 PREOPERATIVE DIAGNOSES: Multiparity, requesting voluntary female sterilization. FINAL DIAGNOSES: Multiparity, requesting voluntary female sterilization. PROCEDURE PERFORMED: Operative laparoscopic bilateral salpingectomy (sterilization). SURGEON: Inocencio Clark DO MILKING WORKER: earth science technical officer. TYPE OF ANESTHESIA: General. ANESTHESIOLOGIST: Zaina Molina MD DESCRIPTION OF FINDINGS: A normal sized uterus, normal bilateral fallopian tubes and ovaries. Complete bilateral salpingectomy performed. Appendix, bowel and abdominal and pelvic viscera examined and all within normal limits. TECHNICAL PROCEDURE: After informed consent was obtained, the patient was taken to the operating room where she underwent smooth induction with general anesthesia. The patient was placed in dorsal lithotomy position in [place] stirrups. The vagina, perineum and abdomen were thoroughly prepped and the patient sterilely draped in the usual fashion. A single tooth tenaculum was used to grasp the cervix at 12 o'clock. The uterine cavity sounded to 9 cm. A HUMI uterine manipulator was placed transcervically and the balloon inflated. A transurethral Thompson catheter was then placed. Attention was then placed to the patient's abdomen where the umbilicus was grasped with a Ronny clamp. It was elevated and a 5 mm incision made at the base of the umbilicus.. Introduction of the Veress needle was done in usual fashion to gain peritoneal entry. Intraperitoneal placement was confirmed by the water drop test. Carbon dioxide gas was infused and pneumoperitoneum was obtained. Using a 5 mm Optiview trocar, I inserted the laparoscope and the trocar through the umbilicus. Intraperitoneal placement was confirmed directly with the laparoscope. Survey of the abdomen and pelvis revealed the above noted findings. Next, an 8 mm port was inserted to the left of midline under direct visualization and a 5 mm port was inserted to the right of midline under direct visualization. The fallopian tube on the left was grasped with a forceps and elevated superiorly by the visitor service assistant. I then used the LigaSure device to desiccate and divide the fallopian tube accross the mesosalpinx. The fallopian tube was divided from its attachment to the ovary and across the mesosalpinx with good hemostasis noted and proximally at the uterus. The specimen was retrieved through the 8 mm port and submitted to pathology. The same procedure was performed on the contralateral fallopian tube in similar fashion. There was no bleeding from the bilateral mesosalpinx noted. The abdomen and pelvis were thoroughly irrigated. I systematically inspected all surfaces of the surgical site. All of the patient's anatomy was normal as described above. The bowel and other organs were inspected systematically. There was no bleeding, lesions or laparoscopic injuries noted. At this point, the carbon dioxide gas was removed. The trocars were removed under direct visualization. The skin incisions were injected with 0.25% Marcaine with epinephrine, approximately 20 mL were used across 3 incisions. Next, the skin was closed using 3-0 Monocryl in subcuticular fashion. A thin layer of Dermabond was placed across the 3 abdominal incisions. The Thompson catheter and cervical manipulator were removed. There was no bleeding from the cervix noted. The patient was taken out of lithotomy position, awakened and taken to recovery room in stable condition. INTRAOPERATIVE COMPLICATIONS: None. ESTIMATED BLOOD LOSS: Less than 15 mL. POSTOPERATIVE CONDITION: Stable. SPECIMENS: Left and right fallopian tubes. MEDICATIONS: The patient received 2 grams of Ancef prior to skin incision. DO NERIS Byers TID: [id number] RECEIPT: [id number] [facility]
[2024-09-27] MEDS: METOCLOPRAMIDE HCL 5MG/ml INJ 2ml VIAL IV ONE (13:00)
[2024-09-27 13:20] VITALS: BP 118/72; PULSE 70; RESP 16; O2SAT 100
== END 2024-09-27 13:25 | disposition home or self-care (01) ==
LOC: SUR 08:54
PROVIDERS: ATTEND Obstetrics & Gynecology
DX: Z30.2 Encounter for sterilization (principal); N70.01 Acute salpingitis; N83.291 Other ovarian cyst, right side; Z98.890 Other specified postprocedural states; N83.8 Other noninflammatory disorders of ovary, fallopian tube and broad ligament; Z64.1 Problems related to multiparity
CPT/HCPCS: 36415; 58661; 80053; 81001; 84702; 85025; 85610; 85730; 88307; J0330; J1100; J2175; J2250; J2405; J2704; J2765; J3010

== ENCOUNTER 2025-02-05 18:34 | Emergency (ER) | payer MEDICAID ==
[~2025-02-05] VITALS: Ht 160 cm; Wt 94.6 kg
[~2025-02-05 18:34] MED LIST changes: +HYDR1TAB97 PO
[2025-02-05 20:15] VITALS: BP 110/81; PULSE 84; RESP 16; TEMP 97.7; O2SAT 98
--- NOTE | 2025-02-05 20:22 | ED.PDOC ---
HPI Comments 29-year-old female presents to ER with complaints of laceration to left 3rd finger x2 hours. Patient reports that she was holding a knife in her right hand, slicing fruit when the knife accidentally made impact with her left 3rd finger 2 hours prior to arrival to ER and sustained laceration to left 3rd finger at that time. She rates her current pain an 8/10 to left 3rd finger without radiation. Denies use of medications for current symptoms and states she is up-to-date to date on her tetanus shot. Denies numbness/tingling or any further symptoms/complaints Chief Complaint: Laceration Time Seen by MD: 18:47 Primary Care Provider: CLIFFORD Reviewed Notes: Nurses Notes, Medications, Allergies Allergies: Coded Allergies: No Known Drug Allergy (Verified Allergy, Unknown, 09/20/24) Home Meds Active Scripts Hydrocodone-Acetaminophen (Hydrocodone/Acetaminophen 5-325 mg) 1 Tab Tab, 1 TAB PO Q6HP PRN, #20 TAB Prov:DIMITRIOS HAMPTON DO 09/27/24 Vit W/ Fe Fum-Iron Po (Concept Dha) Cap, 1 CAP PO DAILY, #90 CAP 3 Refills Prov:SIRISHA ADAM CNM 06/11/24 Information Source: Patient Mode of Arrival: Ambulatory Complexity: Simple Laceration Length (cm): 3 Past Medical History PAST MEDICAL HISTORY: Gallstones Surgical History: Tonsillectomy MUSIC REHABILITATION THERAPIST History: No Pertinent MUSIC REHABILITATION THERAPIST History Family History Family History: Unknown Social History Smoker: Non-Smoker Alcohol: Denies ETOH Use Drugs: Denies Drug Use Lives In: Home Constitutional: denies: chills, diaphoresis, fatigue, fever, malaise, sweats, weakness, others EENTM: denies: blurred vision, double vision, ear bleeding, ear discharge, ear drainage, ear pain, ear ringing, eye pain, eye redness, hearing loss, mouth pain, mouth swelling, nasal discharge, nose bleeding, nose congestion, nose pain, photophobia, tearing, throat pain, throat swelling, voice changes, others Respiratory: denies: cough, hemoptysis, orthopnea, SOB at rest, shortness of breath, SOB with excertion, stridor, wheezing, others Cardiovascular: denies: chest pain, dizzy spells, diaphoresis, Dyspnea on exertion, edema, irregular heart beat, left arm pain, lightheadedness, palpitations, PND, syncope, others Gastrointestinal: denies: abdomen distended, abdominal pain, blood streaked bowels, constipated, diarrhea, dysphagia, difficulty swallowing, hematemesis, melena, nausea, poor appetite, poor fluid intake, rectal bleeding, rectal pain, vomiting, others Genitourinary: denies: abnormal vagina bleeding, burning, dyspareunia, dysuria, flank pain, frequency, hematuria, incontinence, pain, , vagina discharge, urgency, others Neurological: denies: dizziness, fainting, headache, left sided numbness, left sided weakness, numbness, paresthesia, pre-existing deficit, right sided numbness, right sided weakness, seizure, speech problems, tingling, tremors, weakness, others Musculoskeletal: denies: back pain, gout, joint pain, joint swelling, muscle pain, muscle stiffness, neck pain, others Integumetry: reports: others (As stated in HPI) Allergic/Immunocompromised: denies: Difficulty Healing, Frequent Infections, Hives, Itching, others Hematologic/Lymphatic: denies: anemia, blood clots, easy bleeding, easy bruising, swollen glands, others Endocrine: denies: excessive hunger, excessive sweating, excessive thirst, excessive urination, flushing, intolerance to cold, intolerance to heat, unexplained weight gain, unexplained weight loss, others Psychiatric: denies: anxiety, bipolar disorder, depression, hopeless, panic disorder, schizophrenia, sleepless, suicidal, others Physical Exam General Appearance: No Apparent Distress, Obese HEENT: PERRL/EOMI Neck: Full Range of Motion, Non-Tender, Normal Respiratory: Chest Non-Tender, Lungs Clear, No Accessory Muscle Use, No Respiratory Distress, Normal Breath Sounds Cardiovascular: No Murmur, No Gallop, Regular Rate/Rhythm Breast Exam: Deferred Gastrointestinal: NOT DONE Genitalia: Deferred Pelvic: Deferred Rectal: Deferred Extremities: Normal capillary refill, Normal range of motion Neurologic: Alert, No Motor Deficits, Normal Affect, Normal Mood, No Sensory Deficits Cerebellar Function: Normal Reflexes: Normal Skin: Dry, Warm, Other (3 cm laceration noted to left 3rd finger. Slight TTP/swelling/erythema localized to wound edges. No nailbed injury/further skin changes noted. Patient able to fully move all fingers of left hand. Pulses intact) Peripheral Pulses: 2+ Radial (R), 2+ Radial (L), 2+ Brachial (R), 2+ Brachial (L) Lymphatic: No Adenopathy Was a procedure done? Was a procedure done?: Yes Sedation Sedation?: No Laceration Repair : Location Left 3rd finger Length 3 cm Anesthetic: Lidocaine (1%), Without epi Laceration Repair Prep: Saline (and peroxide), by Irrigation (without any signs of foreign body) Laceration Repair Wound Comple: epidermis/dermis repair Laceration Repair: Number of sutures (4 placed - patient tolerated well without any complication), Size (4-0), Nylon, Simple, Non-adherent gauze Informed consent obtained: Yes Risks, benefits, and alternati: Yes Differential diagnosis Generic Laceration: Fracture, Retained Foriegn Body, Neurovascular Injury X-Ray, Labs, Meds, VS Vital Signs Date Time Temp Pulse Resp B/P (MAP) Pulse Ox O2 Delivery O2 Flow Rate FiO2 02/05/25 20:15 97.7 84 16 110/81 (91) 98 97.7 02/05/25 20:15 Room Air* 0 21 02/05/25 18:39 97.7 84 16 110/81 (91) 98 97.7 Wound cleaning performed at bedside Wound care/cleaning discussed and advised Advised to follow up in two days for wound check Advised to follow up in 10-14 days for removal of sutures Advised to follow up with PCP in 1-2 days Patient verbalized understanding and agreeable with current plan of care Advised to return to ER immediately if symptoms worsen Time of 1ST Reevaluation: 19:44 Reevaluation 1ST: N/A Patient Education/Counseling: Diagnosis, Treatment, Prognosis, Need For Follow Up Family Education/Counseling: No Family Present Departure 1 Departure Time of Disposition: 20:04 Impression: Primary Impression: Laceration of finger of left hand Qualified Codes: S61.213A - Laceration without foreign body of left middle finger without damage to nail, initial encounter Disposition: HOME / SELF CARE / HOMELESS Condition: Stable Discharged With: Friend Critical Care Note Critical Care Time?: No Stability Stability form required: No Heart Score Heart Score: Heart Score Response (Comments) Value History N/A 0 EKG N/A 0 Age N/A 0 Risk Factors N/A 0 Troponin N/A 0 Total 0 TEMO FLORES Feb 05, 2025 20:22
== END 2025-02-05 21:03 | disposition home or self-care (01) ==
LOC: ER 18:34
DX: S61.213A Laceration without foreign body of left middle finger without damage to nail, initial encounter (principal); Z90.89 Acquired absence of other organs; W26.0XXA Contact with knife, initial encounter; Y93.89 Activity, other specified; Y92.89 Other specified places as the place of occurrence of the external cause; Y99.8 Other external cause status
CPT/HCPCS: 12002

== ENCOUNTER 2025-04-23 06:12 | Inpatient (IN) | payer MEDICAID ==
[2025-04-22 10:41] LABS: Urine Protein, UAD Negative (Negative)
[2025-04-22 10:42] LABS: INR 0.97 (0.9-1.15); Partial Thromboplastin Time 27.4 SEC (24.5-34.5); Prothrombin Time 10.3 sec (9.3-11.8)
[2025-04-22 10:43] LABS: Hematocrit 38.0 % (36.0-46.0); Hemoglobin 12.7 g/dL (12.2-16.2); Mean Corpuscular Hemoglobin 26.9 pg (28.0-32.0); Mean Corpuscular Volume 80.5 fL (80.0-100.0); Nucleated Red Blood Cells % 0.0 %
[2025-04-22 10:57] LABS: Alanine Aminotransferase 20 U/L (7-40); Albumin 4.1 g/dL (3.2-4.8); Alkaline Phosphatase 59 U/L (46-116); Anion Gap 7 (5-15); BUN/Creatinine Ratio 18.6 (10.0-20.0); Blood Urea Nitrogen 11 mg/dL (9-23); Calcium 9.5 mg/dL (8.7-10.4); Carbon Dioxide 26 mmol/L (20-31); Glucose 95 mg/dL (74-106); Potassium 4.3 mmol/L (3.5-5.1); Sodium 143 mmol/L (136-145); Total Protein 6.2 g/dL (5.7-8.2)
[2025-04-22 10:58] LABS: Bilirubin, Total 0.4 mg/dL (0.2-1.0)
[2025-04-22 10:59] LABS: Chloride 110 mmol/L (98-107)
[~2025-04-23] VITALS: Ht 160 cm; Wt 97.4 kg
[~2025-04-23 06:12] MED LIST changes: -HYDR1TAB97 PO; +TIRZ5INJ2 SC
[2025-04-23] MEDS: ceFAZolin 2 GM/D5W50ml 50 ML IV ONE (06:23)
[2025-04-23] MEDS ORDERED: fentaNYL CITRATE 100 MCG/2 ML VL ONE (06:43)
[2025-04-23] MEDS ORDERED: MIDAZOLAM HCL 2MG/2ML 2ml VIAL (1mg/ml) ONE (06:43)
[2025-04-23] MEDS ORDERED: LIDOCAINE 1% INJ PF 5ML AMP ONE (06:43)
[2025-04-23] MEDS ORDERED: HYDROmorphone HCL 2 MG/ML VL/or syr ONE (06:43)
[2025-04-23] MEDS ORDERED: KETAMINE 50mg/ML 1ml syringe ONE (06:43)
[2025-04-23] MEDS ORDERED: PROPOFOL 10 MG/ML 20 ML IV ONE (06:44)
[2025-04-23] MEDS ORDERED: SODIUM CHLORIDE LOCK 10 ML ONE (06:44)
[2025-04-23] MEDS: SUCCINYLCHOLINE CHLORIDE 20 MG/ML 10ML VIAL IV ONE (06:44)
[2025-04-23] MEDS ORDERED: LIDOCAINE HCL 2% TOP JELLY 5ML TOP ONE (06:44)
[2025-04-23] MEDS: BUPIVACAINE 0.5% P/F INJ 10 ML VIAL ONE (06:58)
[2025-04-23] MEDS: LIDOCAINE W/ EPINEPHRINE 1% 20ML VIAL ONE (06:58)
[2025-04-23] MEDS ORDERED: HYDROmorphone HCL 2 MG/ML VL/or syr IV PRN (07:00)
[2025-04-23] MEDS: KETOROLAC TROMETH 30 MG/ML 1ML VIAL IV ONE (07:00)
[2025-04-23] MEDS ORDERED: MORPHINE SULFATE INJ 2 MG/ml SYRG IV PRN ×2 (07:42→09:15)
[2025-04-23] MEDS ORDERED: SUGAMMADEX 200mg/2ml Vial (100MG/ML) IV ONE (07:42)
[2025-04-23 08:07] VITALS: PULSE 88; RESP 17; O2SAT 100
[2025-04-23] MEDS: MORPHINE SULFATE 4 MG/ML SYR/VIAL IV PRN (08:43)
[2025-04-23] MEDS: ROCURONIUM 10MG/ML 10ML VIAL IV ONE (08:47)
[2025-04-23] MEDS: METOCLOPRAMIDE HCL 5MG/ml INJ 2ml VIAL IV ONE (08:51)
[2025-04-23] MEDS: HYDROmorphone HCL 2 MG/ML VL/or syr IV PRN ×2 (08:53→13:33)
[2025-04-23] MEDS: D5W/SOD CHL 0.45%/KCL 20MEQ 1,000 ML IV SCH (09:05)
[2025-04-23] MEDS ORDERED: NITROGLYCERIN 0.4 MG SL TAB SL PRN (09:15)
[2025-04-23] MEDS: PANTOPRAZOLE 40 MG/10 ML VIAL INJ IV SCH (09:32)
--- NOTE | 2025-04-23 09:35 | DVHOP ---
DATE OF SURGERY: 04/23/2025 SURGEON: Pankaj Robb MD. METHANE GAS COLLECTION SYSTEM OPERATOR: Deo Cervantes NP. ANESTHESIA: General endotracheal. ANESTHESIOLOGIST: Dr. Molina. PROCEDURES: * Laparoscopy. * Laparoscopic cholecystectomy. DESCRIPTION OF PROCEDURE: Under general endotracheal anesthesia with the patient's skin prepped and draped, supraumbilical incision was made and Veress needle inserted into the peritoneal cavity by the hanging drop technique in order to establish pneumoperitoneum by insufflation with carbon dioxide. Once pneumoperitoneum to 15 mmHg pressure was achieved, the needle was removed and replaced with a 5 mm trocar port through which a 0-degree viewing laparoscope was inserted and under direct vision, a 10 mm port was inserted through the subxiphoid midline skin and a 5 mm port inserted through the anterior axillary line at the level of the umbilicus. Instrumentation was introduced and laparoscopy was performed. Laparoscopy was hampered by the patient's obesity; however, no obvious unexpected pathology was encountered. The gallbladder was placed on tension. The cystic duct and cystic artery were identified, skeletonized, and traced after being circumferentially dissected and traced into the hepatocystic triangle, so as to minimize the potential for inadvertent injury to the common bile duct. The cystic duct and cystic artery were then divided between metallic clips close to the gallbladder, again trying to avoid any injury to the common bile duct. Following division of the cystic duct and cystic artery, the gallbladder was resected from its liver bed by electrocautery and traction. The fully mobilized gallbladder was then placed into a specimen extraction bag, which was introduced through the 10 mm port site and then the specimen bag with its contents were removed from the peritoneal cavity. The right upper quadrant was then irrigated. Irrigant was aspirated. Hemostasis was meticulously achieved, found to be complete. At the termination of the procedure, there was no evidence of bleeding from either the gallbladder bed or from the port sites. Instrumentation was withdrawn. Pneumoperitoneum was evacuated. The wound was approximated using Monocryl suture and Dermabond glue. The patient remained stable throughout the procedure and left the operating room following accurate needle and sponge counts. Her , Rj, was thoroughly informed at [phone]. MD ERMELINDA Genao/GELY/TAMMY TID: [id number] RECEIPT: [id number]
[2025-04-23] MEDS: ONDANSETRON HCL 4 MG/2 ML VIAL IV PRN (10:20)
--- NOTE | 2025-04-23 10:20 | DVHHP2 ---
Review of Systems Allergies: Coded Allergies: Nitrofurantoin (Unverified Allergy, Mild, rash, 03/06/25) Medications Current Medications Medications Dose Ordered Sig/Antoine Route Start Time Stop Time Status Last Admin Dose Admin Morphine Sulfate 2 mg Q4H PRN IV 04/23/25 07:00 04/23/25 11:01 04/23/25 08:43 2 MG Potassium Chloride/Dextrose/ Sod Cl 1,000 ml @ 120 mls/hr Q8H20M IV 04/23/25 08:00 04/23/25 09:05 120 MLS/HR Cefazolin Sodium/ Dextrose 50 ml @ 50 mls/hr Q8HR IV 04/23/25 14:00 Hydromorphone HCl 1 mg Q3HPRN PRN IV 04/23/25 08:00 Pantoprazole Sodium 40 mg DAILY IV 04/23/25 10:00 04/23/25 09:32 40 MG Ondansetron HCl 4 mg Q4HPRN PRN IV 04/23/25 08:00 Nitroglycerin 0.4 mg Q5MINP PRN SL 04/23/25 09:15 Morphine Sulfate 2 mg Q30M PRN IV 04/23/25 09:15 Exam Vital Signs Vital Signs Date Time Temp Pulse Resp B/P (MAP) Pulse Ox O2 Delivery O2 Flow Rate FiO2 04/23/25 09:22 67 12 114/76 (89) 100 04/23/25 08:07 97.2 97.2 04/23/25 08:07 Mask 6.0 100 Labs/Xrays Labs Test 04/23/25 06:49 04/22/25 09:20 Range/Units Beta HCG, Quantitative 1.1 L 1.5-4.2 mIU/mL White Blood Count 7.4 4.4-10.8 10^3/uL Red Blood Count 4.73 4.0-5.20 10^6/uL Hemoglobin 12.7 12.2-16.2 g/dL Hematocrit 38.0 36.0-46.0 % Mean Corpuscular Volume 80.5 80.0-100.0 fL Mean Corpuscular Hemoglobin 26.9 L 28.0-32.0 pg Mean Corpuscular Hemoglobin Concent 33.4 32.0-36.0 g/dL Red Cell Distribution Width 15.1 H 11.8-14.3 % Platelet Count 254 140-450 10^3/uL Mean Platelet Volume 9.8 6.9-10.8 fL Neutrophils (%) (Auto) 61.4 37.0-80.0 % Lymphocytes (%) (Auto) 29.7 10.0-50.0 % Monocytes (%) (Auto) 7.1 0.0-12.0 % Eosinophils (%) (Auto) 1.4 0.0-7.0 % Basophils (%) (Auto) 0.4 0.0-2.0 % Neutrophils # (Auto) 4.6 1.6-8.6 10 ^3/uL Lymphocytes # (Auto) 2.2 0.4-5.4 10 ^3/uL Monocytes # (Auto) 0.5 0-1.3 10 ^3/uL Eosinophils # (Auto) 0.1 0-0.8 10 ^3/uL Basophils # (Auto) 0 0-0.2 10 ^3/uL Nucleated Red Blood Cells 0.0 % Prothrombin Time 10.3 9.3-11.8 sec Prothrombin Time INR 0.97 0.9-1.15 Activated Partial Thromboplast Time 27.4 24.5-34.5 SEC Urine Color Light-yellow Yellow Urine Clarity Turbid H Clear Urine pH 7.0 5.0-9.0 Urine Specific [place] 1.027 1.001-1.035 Urine Protein Negative Negative Urine Ketones Negative Negative Urine Blood Negative Negative /uL Urine Nitrite Negative Negative Urine Bilirubin Negative Negative Urine Urobilinogen Normal Negative mg/dL Urine Leukocyte Esterase 1+ Negative /uL Urine RBC 1 0 - 4 /hpf Urine Microscopic WBC 7 H 0-5 /HPF Urine Squamous Epithelial Cells Mod <5 /hpf Urine Bacteria Few H None Seen /hpf Urine Mucus Few None Seen Urine Glucose Normal Normal mg/dL Sodium Level 143 136-145 mmol/L Potassium Level 4.3 3.5-5.1 mmol/L Chloride Level 110 H 98-107 mmol/L Carbon Dioxide Level 26 20-31 mmol/L Anion Gap 7 5-15 Blood Urea Nitrogen 11 9-23 mg/dL Creatinine 0.59 0.550-1.02 mg/dL Glomerular Filtration Rate Calc 126 >90 mL/min BUN/Creatinine Ratio 18.6 10.0-20.0 Serum Glucose 95 74-106 mg/dL Calcium Level 9.5 8.7-10.4 mg/dL Total Bilirubin 0.4 0.2-1.0 mg/dL Aspartate Amino Transferase (AST) 16 13-40 U/L Alanine Aminotransferase (ALT) 20 7-40 U/L Alkaline Phosphatase 59 46-116 U/L Total Protein 6.2 5.7-8.2 g/dL Albumin 4.1 3.2-4.8 g/dL SEPSIS Sepsis Screen Physician Orders Oxygen By Face Mask (04/23/25 06:57) Sales Receptionist (04/23/25 06:57) Notify Anesth. For Changes: (04/23/25 06:57) Pulse Ox Assessment (04/23/25 06:57) Bear Hugger For Temp <94.5f (04/23/25 06:57) May Have Head Of Bed Up (04/23/25 06:57) Follow Iv With Surgeon Orders (04/23/25 06:57) Discharge To Room Per Criteria (04/23/25 06:57) Morphine Sulfate Injection (04/23/25 07:00) To Pacu For Recovery (04/23/25 07:57) Oxygen Via Cool Mist Mask (04/23/25 07:57) Incentive Spirometry Q 1hr (04/23/25 07:57) Abdominal Binder (04/23/25 07:57) Sequential Compression Device (04/23/25 07:57) Page Hospitalist For Admission (04/23/25 07:57) Clear Liq Diet (04/23/25 Breakfast) Bilirubin, Total (04/24/25 04:00) Ambulate Every 4hours Q4H (04/23/25 07:57) D5w/Sod Chl 0.45%/Kcl 20meq (04/23/25 08:00) Cefazolin 2 Gm/H6g42hn (Ancef) (04/23/25 14:00) Hydromorphone Injection (Dilaudid Inject (04/23/25 08:00) Pantoprazole (Protonix) (04/23/25 10:00) Ondansetron Hcl (Zofran) (04/23/25 08:00) Admit (04/23/25 09:02) Oxygen By Nasal Cannula (04/23/25 09:02) Nitroglycerin Sublingual (Ntrostat Subli (04/23/25 09:15) Morphine Sulfate Injection (04/23/25 09:15) Stat Ekg For Chest Pain (04/23/25 09:02) Notify Of Changes From Base (04/23/25 09:02) Emergency Dysrhythmia Protocol (04/23/25 09:02) Rhythm Strips Once Every Shift (04/23/25 09:02) Admit (04/23/25 09:01) Vital Signs Date Time Temp Pulse Resp B/P (MAP) Pulse Ox O2 Delivery O2 Flow Rate FiO2 04/23/25 09:22 67 12 114/76 (89) 100 04/23/25 09:13 66 12 112/67 04/23/25 09:13 66 12 112/67 04/23/25 08:53 73 15 128/78 04/23/25 08:52 74 15 128/74 (92) 93 04/23/25 08:43 87 21 127/83 04/23/25 08:37 76 23 130/86 (101) 98 04/23/25 08:22 85 26 121/79 (93) 98 04/23/25 08:17 90 25 126/85 (99) 97 04/23/25 08:12 94 25 115/77 (90) 97 04/23/25 08:07 97.2 88 17 118/77 (91) 100 97.2 04/23/25 08:07 Mask 6.0 100 04/23/25 08:07 88 17 100 Mask 6.0 04/23/25 06:22 97.4 78 20 111/69 (83) 95 97.4 Medications Medications Dose Ordered Sig/Antoine Route Start Time Stop Time Status Last Admin Dose Admin Hydromorphone HCl 0.5 mg Q10M PRN IV 04/23/25 07:00 04/23/25 07:41 DC 04/23/25 08:53 0.5 MG Metoclopramide HCl 10 mg PRN ONCE IV 04/23/25 07:00 04/23/25 07:14 DC 04/23/25 08:51 10 MG Morphine Sulfate 2 mg Q4H PRN IV 04/23/25 07:00 04/23/25 11:01 04/23/25 08:43 2 MG Pantoprazole Sodium 40 mg DAILY IV 04/23/25 10:00 04/23/25 09:32 40 MG Potassium Chloride/Dextrose/ Sod Cl 1,000 ml @ 120 mls/hr Q8H20M IV 04/23/25 08:00 04/23/25 09:05 120 MLS/HR Assessment/Plan Assessment/Plan SEE DICTATED NOTE Plan discussed with: Patient My Orders Orders - FABRICIO VENCES MD Procedure Category Date Status Time Admit ADMIT 04/23/25 Transmitted 09:02 Oxygen By Nasal RT 04/23/25 Transmitted Cannula 09:02 Nitroglycerin [facility] 04/23/25 In Process Sublingual (Ntrostat 09:15 Morphine Sulfate PHA 04/23/25 In Process Injection 09:15 Stat Ekg For Chest [facility] 04/23/25 In Process Pain 09:02 Notify Md Of Changes [facility] 04/23/25 In Process From Base 09:02 Emergency Dysrhythmia [facility] 04/23/25 In Process Protocol 09:02 Rhythm Strips Once [facility] 04/23/25 In Process Every Shift 09:02 Admit ADMIT 04/23/25 Transmitted 09:01 Date of Service: Apr 23, 2025 Billing Provider: FABRICIO VENCES MD Common Visit Codes: [id number] INP/OBS CARE (HIGH) FABRICIO VENCES MD Apr 23, 2025 10:20
--- NOTE | 2025-04-23 10:29 | DVHHP ---
ADMIT DATE: 04/23/2025 HISTORY OF PRESENT ILLNESS: The patient is a 29-year-old lady who was admitted after she underwent laparoscopic cholecystectomy for cholelithiasis and chronic cholecystitis. The patient at this time denies any significant pain. No chest pain, no shortness of breath, no nausea or vomiting. REVIEW OF SYSTEMS: Review of rest with other systems is currently negative. PAST MEDICAL HISTORY: No significant illness in the past. MEDICATIONS: She takes Zepbound. ALLERGIES: ALLERGY TO NITROFURANTOIN. SOCIAL HISTORY: No history of smoking or alcohol. FAMILY HISTORY: Negative. PHYSICAL EXAMINATION: GENERAL: The patient is awake and alert. VITAL SIGNS: Temperature of 97.2, pulse 76 per minute, blood pressure 128/74. SHEENT: Unremarkable. NECK: No JVD. No pedal edema. LUNGS: Equal bilaterally with no added sounds. CARDIOVASCULAR: S1 and S2 is regular without murmurs. ABDOMEN: Soft. There is no organomegaly. Bowel sounds are hypoactive. NEUROLOGIC: Nonfocal. MUSCULOSKELETAL: Normal. ASSESSMENT AND PLAN: * Obesity. * Status post laparoscopic cholecystectomy for cholelithiasis and chronic cholecystitis. The patient will be placed on pain medications along with IV fluids and a clear liquid diet. Nikolai Doll MD JLN/EKT TID: [id number] RECEIPT: [id number]
[2025-04-23 10:34] VITALS: BP 94/69; PULSE 69; RESP 16; TEMP 98; O2SAT 98
[2025-04-23 12:59] VITALS: BP 111/70; PULSE 56; RESP 18; TEMP 98; O2SAT 97
[2025-04-23] MEDS: ceFAZolin 2 GM/D5W50ml 50 ML IV SCH (13:19)
[2025-04-23] MEDS ORDERED: ERGO500086 PO (14:48)
[2025-04-23] MEDS ORDERED: PROG100C23 PO (14:48)
[2025-04-23 16:34] VITALS: BP 94/60; PULSE 96; RESP 18; TEMP 98.4; O2SAT 98
[2025-04-23 20:00] VITALS: RESP 18; O2SAT 98
[2025-04-23 21:00] VITALS: BP 101/65; PULSE 75; RESP 18; TEMP 97.9; O2SAT 97
[2025-04-24 01:00] VITALS: BP 110/79; PULSE 72; RESP 18; TEMP 97.8; O2SAT 95
[2025-04-24 05:00] VITALS: BP 92/55; PULSE 69; RESP 17; TEMP 98; O2SAT 94
[2025-04-24] MEDS: HYDROcodone-ACET 5/325MG TAB PO PRN (05:08)
[2025-04-24 07:00] LABS: Alanine Aminotransferase 26 U/L (7-40); Alkaline Phosphatase 56 U/L (46-116); Anion Gap 10 (5-15); BUN/Creatinine Ratio 16.1 (10.0-20.0); Blood Urea Nitrogen 9 mg/dL (9-23); Carbon Dioxide 23 mmol/L (20-31); Potassium 3.9 mmol/L (3.5-5.1); Sodium 142 mmol/L (136-145); Total Protein 5.9 g/dL (5.7-8.2)
[2025-04-24 07:01] LABS: Albumin 3.7 g/dL (3.2-4.8)
[2025-04-24 07:02] LABS: Bilirubin, Total 0.4 mg/dL (0.2-1.0); Hemoglobin 11.9 g/dL (12.2-16.2)
[2025-04-24 07:04] LABS: Calcium 8.5 mg/dL (8.7-10.4); Chloride 109 mmol/L (98-107); Glucose 117 mg/dL (74-106)
[2025-04-24 07:07] LABS: Hematocrit 36.7 % (36.0-46.0); Mean Corpuscular Hemoglobin 26.2 pg (28.0-32.0); Mean Corpuscular Volume 80.8 fL (80.0-100.0); Nucleated Red Blood Cells % 0.1 %
[2025-04-24 09:00] VITALS: BP 103/64; PULSE 74; RESP 14; TEMP 97.9; O2SAT 96
[2025-04-24 13:00] VITALS: BP 102/61; PULSE 72; RESP 14; TEMP 98.3; O2SAT 94
--- NOTE | 2025-04-24 15:10 | DVHDS2 ---
Discharge Summary Date of Admission Apr 23, 2025 at 09:02 Date of Discharge: Apr 24, 2025 Labs/Diagnostic Data: Laboratory Results Test 04/24/25 06:00 04/23/25 06:49 04/22/25 09:20 White Blood Count 12.1 10^3/uL (4.4-10.8) Red Blood Count 4.53 10^6/uL (4.0-5.20) Hemoglobin 11.9 g/dL (12.2-16.2) Hematocrit 36.7 % (36.0-46.0) Mean Corpuscular Volume 80.8 fL (80.0-100.0) Mean Corpuscular Hemoglobin 26.2 pg (28.0-32.0) Mean Corpuscular Hemoglobin Concent 32.5 g/dL (32.0-36.0) Red Cell Distribution Width 15.0 % (11.8-14.3) Platelet Count 249 10^3/uL (140-450) Mean Platelet Volume 9.7 fL (6.9-10.8) Neutrophils (%) (Auto) 81.2 % (37.0-80.0) Lymphocytes (%) (Auto) 12.0 % (10.0-50.0) Monocytes (%) (Auto) 6.6 % (0.0-12.0) Eosinophils (%) (Auto) 0.1 % (0.0-7.0) Basophils (%) (Auto) 0.1 % (0.0-2.0) Neutrophils # (Auto) 9.8 10 ^3/uL (1.6-8.6) Lymphocytes # (Auto) 1.5 10 ^3/uL (0.4-5.4) Monocytes # (Auto) 0.8 10 ^3/uL (0-1.3) Eosinophils # (Auto) 0 10 ^3/uL (0-0.8) Basophils # (Auto) 0 10 ^3/uL (0-0.2) Nucleated Red Blood Cells 0.1 % Sodium Level 142 mmol/L (136-145) Potassium Level 3.9 mmol/L (3.5-5.1) Chloride Level 109 mmol/L (98-107) Carbon Dioxide Level 23 mmol/L (20-31) Anion Gap 10 (5-15) Blood Urea Nitrogen 9 mg/dL (9-23) Creatinine 0.56 mg/dL (0.550-1.02) Glomerular Filtration Rate Calc 127 mL/min (>90) BUN/Creatinine Ratio 16.1 (10.0-20.0) Serum Glucose 117 mg/dL (74-106) Calcium Level 8.5 mg/dL (8.7-10.4) Total Bilirubin 0.4 mg/dL (0.2-1.0) Aspartate Amino Transferase (AST) 19 U/L (13-40) Alanine Aminotransferase (ALT) 26 U/L (7-40) Alkaline Phosphatase 56 U/L (46-116) Total Protein 5.9 g/dL (5.7-8.2) Albumin 3.7 g/dL (3.2-4.8) Beta HCG, Quantitative 1.1 mIU/mL (1.5-4.2) Prothrombin Time 10.3 sec (9.3-11.8) Prothrombin Time INR 0.97 (0.9-1.15) Activated Partial Thromboplast Time 27.4 SEC (24.5-34.5) Urine Color Light-yellow (Yellow) Urine Clarity Turbid (Clear) Urine pH 7.0 (5.0-9.0) Urine Specific [place] 1.027 (1.001-1.035) Urine Protein Negative (Negative) Urine Ketones Negative (Negative) Urine Blood Negative /uL (Negative) Urine Nitrite Negative (Negative) Urine Bilirubin Negative (Negative) Urine Urobilinogen Normal mg/dL (Negative) Urine Leukocyte Esterase 1+ /uL (Negative) Urine RBC 1 /hpf (0 - 4) Urine Microscopic WBC 7 /HPF (0-5) Urine Squamous Epithelial Cells Mod /hpf (<5) Urine Bacteria Few /hpf (None Seen) Urine Mucus Few (None Seen) Urine Glucose Normal mg/dL (Normal) Other Laboratory Tests 04/24/25 06:00 Brief Hx & Hospital Course: SEE DICTATED NOTE Condition at Discharge: Good Final Diagnosis/Problems List LAP LUIS F Discharge Disposition: Home Discharge Instruct/Medications Diet: Regular Activity: No Restrictions, As Tolerated Follow Up/Referral: SCHEDULE APPT WITH DR PEÑALOZA IN 1 WK Medications: SCRIPT TO PHARMACY Scheduled Vit W/ Fe Fum-Iron Po (Concept Dha), 1 CAP PO DAILY Tirzepatide (Zepbound), 5 MG SC QWEEKLY, (Reported) Miscellaneous Medications Ergocalciferol (Vitamin D (Ergocalciferol), 25,000 UNIT PO, (Reported) Progesterone Micronized (Progesterone), 10 MG PO, (Reported) Discharge Statement: "Patient was advised to return to the ER or call 911 if any headaches, dizziness, shortness of breath, chest pain, abdominal pain, bleeding, fevers, or worsening of medical condition. Patient was counseled about treatment plan, medications, possible side effects, patientverbalized understanding. All questions were answered to the best of my ability. This discharge took greater then 30 minutes in planning, reviewing documentation, counseling the patient, and discussing with other team members." ASSESSMENT ASSESSMENT Assessment NANCY KERNS Date of Service: Apr 24, 2025 Billing Provider: FABRICIO VENCES MD Common Visit Codes: 08366-YTY/OBS DISCH DAY >30min FABRICIO VENCES MD Apr 24, 2025 15:09
[2025-04-24] MEDS ORDERED: CEPH500T PO (15:11)
[2025-04-24] MEDS ORDERED: TRAM-626 PO (15:11)
[2025-04-24] MEDS ORDERED: DOCU-94 PO (15:11)
--- NOTE | 2025-04-24 15:21 | DVHDS ---
DATE OF DISCHARGE: 04/24/2025 HISTORY OF PRESENT ILLNESS: The patient is a 29-year-old lady who was admitted after she underwent surgery for cholelithiasis and chronic cholecystitis. HOSPITAL COURSE: The patient did well postoperatively. Her pain is under control and she is tolerating oral diet. The patient will now be discharged home to be on Keflex 500 mg t.i.d. for 7 days, tramadol p.r.n. for pain, and Colace p.r.n. for constipation. She will follow up with Dr. Robb in the next 1-2 weeks. FINAL DIAGNOSES: * Obesity. * Status post laparoscopic cholecystectomy for cholelithiasis and chronic cholecystitis. Time spent in discharge planning and review of plan with the patient and nursing was 37 minutes. MD JONATHAN Chris/CLAUDIA TID: [id number] RECEIPT: [id number]
[2025-04-24 15:27] VITALS: TEMP 36.8
--- NOTE | 2025-04-24 15:35 | DVHPN2 ---
Progress Note Date Seen: Apr 24, 2025 Medical Necessity Reason Pt with a Central, PICC or Fol: No Objective vital signs Vital Sign Date Time Temp Pulse Resp B/P (MAP) Pulse Ox O2 Delivery O2 Flow Rate FiO2 04/24/25 15:27 36.8 04/24/25 13:00 72 14 102/61 (75) 94 04/24/25 07:37 Room Air* 0 21 Total Intake and Output 04/23/25 04/23/25 04/24/25 15:00 23:00 07:00 Intake Total 50 ml 140 ml 1850 ml Balance 50 ml 140 ml 1850 ml medications Current Medications Medications Dose Ordered Sig/Antoine Route Start Time Stop Time Status Last Admin Dose Admin Potassium Chloride/Dextrose/ Sod Cl 1,000 ml @ 120 mls/hr Q8H20M IV 04/23/25 08:00 04/24/25 09:28 120 MLS/HR Cefazolin Sodium/ Dextrose 50 ml @ 50 mls/hr Q8HR IV 04/23/25 14:00 04/24/25 14:16 50 MLS/HR Hydromorphone HCl 1 mg Q3HPRN PRN IV 04/23/25 08:00 04/24/25 09:34 1 MG Pantoprazole Sodium 40 mg DAILY IV 04/23/25 10:00 04/24/25 09:32 40 MG Ondansetron HCl 4 mg Q4HPRN PRN IV 04/23/25 08:00 04/24/25 09:32 4 MG Nitroglycerin 0.4 mg Q5MINP PRN SL 04/23/25 09:15 Morphine Sulfate 2 mg Q30M PRN IV 04/23/25 09:15 Acetaminophen/ Hydrocodone Bitart 1 tab Q6HPRN PRN PO 04/23/25 10:30 04/24/25 05:08 1 TAB laboratory and microbiology Laboratory Tests 04/24/25 06:00 Test 04/24/25 06:00 Range/Units Serum Glucose 117 H 74-106 mg/dL Problem List/Assessment/Plan Problem List/Assessment/Plan 04/24/25 she felt badly last night(pain,nausea and vomiting) which has resolved since then and she feels much better today, abdomen is soft appropriately tender, wounds clean and well approximated. advance diet Plan discussed with: Patient MITCH PEÑALOZA MD Apr 24, 2025 15:35
[2025-04-24 17:00] VITALS: BP 116/77; PULSE 66; RESP 14; TEMP 97.6; O2SAT 98
--- NOTE | 2025-04-28 07:37 | ECG ---
[facility] Test Date: 2025-04-23 Test Time: 17:02:34 Pat Name: PATY DURAN Department: Room: 0286 A Gender: F [employer] Specialist: [email or web address] hatfield : 1995 Requested By: FABRICIO VENCES Order Number: [id number] Reading MD: Joseluis Castro Measurements Intervals [place] Rate: 66 P: 25 VA: 159 QRS: 21 QRSD: 93 T: 32 QT: 429 QTc: 450 Interpretive Statements Sinus rhythm Probable left atrial enlargement Baseline wander in lead(s) V4 Electronically Signed On 04-28-2025 13:23:08 PDT by Joseluis Castro Please click the below link to view image of tracing.
== END 2025-04-24 18:40 | disposition home or self-care (01) | DRG 263 ==
LOC: SUR 06:12 → OVERFLOW 09:02 → WEST WING 10:14
PROVIDERS: ADMIT Internal Medicine; ATTEND Internal Medicine
PROC: 0FT44ZZ Resection of Gallbladder, Percutaneous Endoscopic Approach (ICD-10-PCS; principal; 2025-04-23 07:21)
DX: K80.10 Calculus of gallbladder with chronic cholecystitis without obstruction (principal); E66.9 Obesity, unspecified; Z68.35 Body mass index [BMI] 35.0-35.9, adult; K59.00 Constipation, unspecified
CPT/HCPCS: 36415; 80053; 81001; 84702; 85025; 85610; 85730; 86850; 86900; 86901; 93005; G0378; J0330; J2250; J2405; J2470; J2704; J3490